=== PATIENT | female | born 1975 | race Caucasian/White ===

== ENCOUNTER 2016-07-30 16:02 | Emergency (ER) | payer BC, OTHER ==
[~2016-07-30] VITALS: Ht 160 cm; Wt 87.1 kg
[~2016-07-30 16:02] MED LIST: CLC/300 PO; CLON1TAB21 PO; TOPI200T6 PO; TOPI50TA24 PO
[2016-07-30 16:04] VITALS: TEMP 37; Ht 160 cm; Wt 87.1 kg
[2016-07-30 18:41] LABS: BASO % 0.4 %; BASO ABS # 0.04 K/uL (0-0.2); COMPLETE YES; EOS % 3.6 %; HEMATOCRIT 43.9 % (37-47); IG% 0.2 %; LYMPH % 24.2 %; LYMPH ABS # 2.23 K/uL (1.2-3.4); MEAN CELL VOLUME 84.4 fL (80-100); MEAN CORPUSCULAR HGB CONC 34.4 g/dl (32-36); MEAN PLATELET VOLUME 10.8 fL (7.4-10.4); NEUT % 66.6 %; PLATELET COUNT 179 K/uL (130-400)
[2016-07-30 18:56] LABS: PARTIAL THROMBOPLASTIN RATIO 1.1
[2016-07-30 19:04] LABS: ALT/SGPT 15 U/L (12-78); BLOOD UREA NITROGEN 17 mg/dl (7-18); BUN/CREATININE RATIO 17.4 (10-20); CALCIUM 8.6 mg/dl (8.5-10.1); CARBON DIOXIDE 21 mmol/L (21-32); CHLORIDE 111 mmol/L (98-107); CREATININE 0.98 mg/dl (0.60-1.20); GLUCOSE 84 mg/dl (70-99); POTASSIUM 3.5 mmol/L (3.5-5.1); SODIUM 144 mmol/L (136-145)
[2016-07-30 19:15] LABS: ALB/GLOB RATIO 0.9 (0.9-2); ALKALINE PHOSPHATASE 88 U/L (45-117); AST/SGOT 15 U/L (15-37)
--- NOTE | 2016-07-30 19:49 | DIAGNOSTIC IMAGING REPORT ---
CAROTID ARTERY ULTRASOUND CLINICAL HISTORY: Left eye blindness. Evaluate amaurosis fugax. History of seizures. COMPARISON STUDY: None. TECHNIQUE: Real-time, grayscale, and color Doppler sonography of the carotid and vertebral arteries was performed. Images were viewed in the transverse and longitudinal planes. FINDINGS: No significant atherosclerotic plaque is identified. Velocity measurements are listed below. COMMON CAROTID PEAK SYSTOLIC VELOCITY (CM/S): RIGHT 104 LEFT 98 ICA PEAK SYSTOLIC VELOCITY (CM/S): RIGHT 68 LEFT 64 The systolic ratios between the internal to common carotid arteries are normal. Antegrade flow is seen in the vertebral arteries. The external carotid arteries are patent. Blood pressure in the right arm measured 100/66. Blood pressure in the left arm measured 97/69. IMPRESSION: Normal carotid ultrasound. No evidence of a hemodynamically significant stenosis. Electronically signed by: Kit Montalvo M.D. 07/30/2016 7:47 PM Dictated Date/Time: 07/30/2016 7:46 PM
[2016-07-30] MEDS ORDERED: GADAVIST IV PRN (20:15)
--- NOTE | 2016-07-30 20:36 | DIAGNOSTIC IMAGING REPORT ---
MRI OF THE BRAIN WITHOUT AND WITH IV CONTRAST SEIZURE PROTOCOL CLINICAL HISTORY: History of seizures. Recent transient left-sided vision loss. COMPARISON STUDY: Head CT July 05, 2012. TECHNIQUE: Utilizing a 1.5 Shayna magnet and dedicated coil, multiplanar, multiecho imaging of the brain was performed pre and postcontrast administration. IV administration of 9 mL of Gadavist contrast was uneventful. Thin cut coronal T2 imaging was performed according to seizure protocol. FINDINGS: There no areas of restricted diffusion. No acute intracranial hemorrhage, midline shift or mass effect is present. Brain volume is normal. Ventricular system is normal. The basilar cisterns are patent. There are no extra-axial collections. Flow-voids for the major intracranial vessels are present. There is 7 mm of cerebellar tonsillar ectopia. There are few small T2 hyperintense foci within the bilateral cerebellar hemispheres. No additional areas of signal abnormality are identified within the brain. No intracranial mass or pathologic enhancement is present. There is mild mucosal thickening of the maxillary and ethmoid sinuses. Orbits are unremarkable. IMPRESSION: 1. No acute intracranial findings. 2. No intracranial masses or pathologic enhancement. 3. 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 4. A few small areas of signal abnormality within the bilateral cerebellar hemispheres which could reflect prominent perivascular spaces or old lacunar infarcts. Electronically signed by: Kit Montalvo M.D. 07/30/2016 8:35 PM Dictated Date/Time: 07/30/2016 8:25 PM
--- NOTE | 2016-07-30 20:36 | DIAGNOSTIC IMAGING REPORT ---
MRA OF THE INTRACRANIAL CIRCULATION WITHOUT CONTRAST CLINICAL HISTORY: Left-sided vision loss. Amaurosis fugax. History of seizures. COMPARISON STUDY: None. TECHNIQUE: Utilizing a 1.5 Shayna magnet and 3-D [id number] technique, unenhanced MRA of the intracranial circulation was obtained. FINDINGS: The bilateral M1, M2, A1 and A2 segments are patent. No abrupt vessel cut off or aneurysm is identified within the intracranial circulation. The posterior circulation appears intact. There are bilateral posterior communicating arteries and an anterior communicating artery. IMPRESSION: Unremarkable MRA of the intracranial circulation. Electronically signed by: Kit Montalvo M.D. 07/30/2016 8:35 PM Dictated Date/Time: 07/30/2016 7:49 PM
[2016-07-30] MEDS ORDERED: ASPIRIN 81 MG CHEW PO STA (20:55)
[2016-07-30 21:04] VITALS: BP 102/79; PULSE 79; O2SAT 98
--- NOTE | 2016-07-31 01:17 | EMERGENCY ROOM VISIT NOTE ---
ED Visit Note First contact with patient: 17:21 Chief Complaint: Vision changes. History of Present Illness: Ms. Hamilton is a 41-year-old white female who ambulates into the ED accompanied by her mother complaining of a transient episode of left eye blindness. Historically patient reports she has a history of epilepsy, severe mitral valve prolapse with valvuloplasty. Patient reports she was referred to the ED from her neurologist's office, Dr. Marilia Chaudhari, for evaluation. Patient reports she was feeling well approximately one week ago and then had an acute onset of left eye blindness that lasted for approximately 30-45 seconds. She denied any precipitating symptoms before this event. She reports since the event she is perceiving a mild tunnel vision predominantly in her left eye and she is feeling fatigued. She has not identified any aggravating or alleviating factors related to these symptoms. She had not taken any medications for these symptoms prior to arrival at the hospital. She denies any associated symptoms including headache, recent head trauma, dizziness, lightheadedness, hearing changes, difficulty speaking, difficult swallowing, difficulty ambulating/ coronary body movements, neck pain, back pain, upper respiratory tract symptoms , cough, wheezing, shortness of breath, chest pain, abdominal pain, nausea, vomiting, decreased appetite, extremity weakness/numbness/tingling. Review of Systems: As noted above in history of present illness. All body systems were reviewed and found to be negative as noted above. Past Medical History: As noted above and bronchitis, congestive heart failure, lumbar Syrinx, anxiety, status post section and tubal ligation. Current Medications: Topamax, clonazepam. Allergies to Medications: Penicillin. Social History: Patient is not employed; she lives with her parents and feels safe in her home environment; she denies tobacco and alcohol use. Physical Examination: Vital Signs: Date Time Temp Pulse Resp B/P Pulse Ox O2 Delivery O2 Flow Rate FiO2 07/30/16 21:04 79 16 102/79 98 Room Air 07/30/16 20:32 73 16 103/78 98 Room Air 07/30/16 18:40 73 18 113/73 100 Room Air 07/30/16 16:04 37.0 93 16 118/88 97 Room Air GENERAL: 41-year-old female in mildly anxious but in no acute distress, nontoxic -appearing, afebrile and hemodynamically stable. NEUROLOGICAL: Awake, alert and oriented to person, place and time. Answering questions appropriately and following commands. Normal gait. Good hand eye coordination. No focal motor or sensory deficits. Cranial nerves II through XII grossly intact. Romberg test negative. Pronator drift test negative. Short-term and long-term recall. Able to count backwards. Normal rapid all movements of the hands and feet. Normal heel bermudez test. SKIN: Warm, dry and pink. No soft tissue eruptions or trauma noted. HEENT: Atraumatic and normocephalic. PERRLA. EOMI without nystagmus. Funduscopic examination is unremarkable with a normal-appearing optic disc and no signs of increased intracranial pressure. Sclera mildly injected bilaterally and conjunctiva pink without drainage. No drainage from naris without congestion. Oral cavity moist and pink. Airway patent. Nonradiating tongue. Pharynx is nonerythematous or edematous. Speech normal. No lymphadenopathy. Trachea midline. No jugular venous distention. No carotid bruits. BACK: No tenderness over the bony cervical, thoracic and lumbar spines. Full range of motion of the cervical spine. No CVA tenderness. THORAX: Lungs sounds are clear to auscultation and equal bilaterally with symmetrical chest wall. No wheezing, rales or rhonchi. No crepitus, tenderness , subcutaneous air or deformities noted. HEART: Regular rate and rhythm. No gallops or rubs are appreciated. Systolic murmur heard over the apex. PMI is not displaced. No lifts, heaves or thrills. ABDOMEN: Flat, soft and nontender. Positive bowel sounds in all quadrants. No guarding, rigidity or organomegaly. EXTREMITIES: Moves all extremities well on command and with purpose. All distal neurovascular statuses are intact and equal bilaterally. No calf tenderness or cords. ED Course: Patient is assessed as noted above. Laboratory Testing: Test 07/30/16 18:25 Range/Units White Blood Count 9.20 4.8-10.8 K/uL Red Blood Count 5.20 4.2-5.4 M/uL Hemoglobin 15.1 12.0-16.0 g/dL Hematocrit 43.9 37-47 % Mean Corpuscular Volume 84.4 80-100 fL Mean Corpuscular Hemoglobin 29.0 25-34 pg Mean Corpuscular Hemoglobin Concent 34.4 32-36 g/dl Platelet Count 179 130-400 K/uL Mean Platelet Volume 10.8 7.4-10.4 fL Neutrophils (%) (Auto) 66.6 % Lymphocytes (%) (Auto) 24.2 % Monocytes (%) (Auto) 5.0 % Eosinophils (%) (Auto) 3.6 % Basophils (%) (Auto) 0.4 % Neutrophils # (Auto) 6.12 1.4-6.5 K/uL Lymphocytes # (Auto) 2.23 1.2-3.4 K/uL Monocytes # (Auto) 0.46 0.11-0.59 K/uL Eosinophils # (Auto) 0.33 0-0.5 K/uL Basophils # (Auto) 0.04 0-0.2 K/uL RDW Standard Deviation 40.9 36.4-46.3 fL RDW Coefficient of Variation 13.4 11.5-14.5 % Immature Granulocyte % (Auto) 0.2 % Immature Granulocyte # (Auto) 0.02 0.00-0.02 K/uL Erythrocyte Sedimentation Rate 5 0-21 mm/hr Prothrombin Time 11.0 9.0-12.0 SECONDS Prothromb Time International Ratio 1.0 0.9-1.1 Activated Partial Thromboplast Time 28.0 21.0-31.0 SECONDS Partial Thromboplastin Ratio 1.1 Sodium Level 144 136-145 mmol/L Potassium Level 3.5 3.5-5.1 mmol/L Chloride Level 111 98-107 mmol/L Carbon Dioxide Level 21 21-32 mmol/L Anion Gap 12.0 3-11 mmol/L Blood Urea Nitrogen 17 7-18 mg/dl Creatinine 0.98 0.60-1.20 mg/dl Est Creatinine Clear Calc Drug Dose 80.6 ml/min Estimated GFR () 84.2 Estimated GFR (Non- 72.7 BUN/Creatinine Ratio 17.4 10-20 Random Glucose 84 70-99 mg/dl Calcium Level 8.6 8.5-10.1 mg/dl Total Bilirubin 0.3 0.2-1 mg/dl Aspartate Amino Transf (AST/SGOT) 15 15-37 U/L Alanine Aminotransferase (ALT/SGPT) 15 12-78 U/L Alkaline Phosphatase 88 45-117 U/L Troponin I < 0.015 0-0.045 ng/ml Total Protein 7.6 6.4-8.2 gm/dl Albumin 3.6 3.4-5.0 gm/dl Globulin 4.0 2.5-4.0 gm/dl Albumin/Globulin Ratio 0.9 0.9-2 Thyroid Stimulating Hormone (TSH) 2.080 0.300-4.500 uIu/ml EKG: Was read by myself and reviewed with Dr. Crook; shows normal sinus rhythm with left atrial enlargement. Ventricular rate [address] changes indicating ischemia, injury or infarction. This was compared to a previous from June 2012 changes include decreased heart rate. Carotid Artery Ultrasound: Was reviewed by myself and read by the radiologist showing normal carotid ultrasound with no evidence of hyperdynamic significant stenosis. MRI Brain Combo: Was reviewed by myself and read by the radiologist showing no acute intracranial findings, no intracranial masses/pathology enhancement, cerebral tonsillar ectopia of 7 mm are borderline for Chiari I malformation and a few small areas of single abnormality within the bilateral cerebellar hemispheres which could reflect prominent perivascular spaces or old lunar infarcts. MRA Brain: Was reviewed by myself and read by the radiologist showing an unremarkable MRA of the intracranial circulation. Patient was given a 1 mg aspirin tablet at the request of her neurologist. Patient was reassessed multiple times during her stay in the emergency department. Patient's case and testing was reviewed with Dr. Chaudhari; she recommended that the patient continue to use 81 mg of aspirin today and to keep her upcoming appointment with cardiology and neurology. Patient was educated about tonight's findings and instructed on her treatment plan; she verbalizes understanding and agreement with this plan. Clinical Impression: Evaluation for Amaurosis Fugax. Disposition: Patient discharged home in stable condition accompanied by her mother; prior to departure she was reassessed and subjectively reported she was feeling the same. Plan: Patient was encouraged to use 1 mg of aspirin per day. Patient was encouraged to keep her upcoming appointment with cardiology and neurology. Patient was encouraged return the ED for any return of blindness or any new/ concerning symptoms.
== END 2016-07-30 21:09 | disposition home or self-care (01) ==
LOC: C.EDB 16:04 → C.EDA 21:09
DX: H54.2 Low vision, both eyes (principal); I34.1 Nonrheumatic mitral (valve) prolapse

== ENCOUNTER 2021-03-27 10:50 | Inpatient (IN) ==
--- NOTE | 2021-03-27 11:18 | Emergency Department Note ---
History of Present Illness General Chief complaint: Stroke/CVA Symptoms Stated complaint: POSSIBLE STROKE Time Seen by Provider: 03/27/21 11:13 Source: patient, RN notes reviewed and old records reviewed Mode of arrival: ambulatory Limitations: no limitations History of Present Illness This patient is 45-year-old female who is history of a seizures and a stroke comes in after having strokelike symptoms since yesterday at noon. She says she has left-sided numbness around her lip and also her fingertips. She is fallen 4 times because she has been weak on her left leg. She does not feel her speech has been slurred but her daughter does. She denies any trauma no recent seizures. She is on Klonopin for her seizures. She denies any fever or chills. No history of diabetes no abdominal pain. She had the Covid vaccine x2 in the past. No change in vision no headache neck pain or stiffness. Home Medications Medication Instructions Recorded Confirmed Type topiramate 50 mg tablet 50 mg PO DAILY 08/26/19 03/27/21 History topiramate 50 mg tablet 100 mg PO HS 08/26/19 03/27/21 History aspirin 81 mg tablet 81 mg PO DAILY 03/27/21 03/27/21 History clonazepam 0.5 mg tablet 0.5 mg PO TID 03/27/21 03/27/21 History topiramate 200 mg tablet 200 mg PO BID 03/27/21 03/27/21 History Allergies Allergy/AdvReac Type Severity Reaction Status Date / Time Penicillins Allergy Unknown Unknown Verified 03/27/21 12:09 lamotrigine [From Lamictal] Allergy Unknown Unverified 03/27/21 12:09 Past Med/Surg History Medical History (Updated 03/27/21 @ 16:31 by Shawn Mishra MD) CHF (congestive heart failure) 1 episode Epilepsy History of CVA (cerebrovascular accident) Mitral valve stenosis MTHFR mutation Surgical History (Updated 03/27/21 @ 16:18 by GENARO Michaels) History of tubal ligation S/P balloon mitral valvuloplasty in 1999 and 2017 [facility] Social History (Updated 03/27/21 @ 16:15 by GENARO Michaels) Smoking Status: Current some day smoker Tobacco Type: Cigarettes Hx Alcohol Use: No Feels Safe at Home: Yes Review of Systems A total of 10 systems reviewed and were otherwise negative Physical Exam Vital Signs Vital Signs - 24 hr 03/27/21 10:58 03/27/21 11:25 03/27/21 11:35 Temperature 36.6 C Temperature Source Temporal Artery Scan Pulse Rate 116 H 85 Pulse Rate [Right Finger] 99 H Pulse Rate from SpO2 Sensor 87 Pulse Rhythm Pulse Rhythm [Right Finger] Regular Pulse Strength [Right Finger] Normal Respiratory Rate 18 20 Respiratory Effort / Characteristics Non-Labored Non-Labored Spontaneous Respiratory Depth Normal Normal Respiratory Pattern Regular Blood Pressure 109/83 Blood Pressure [Left Arm] 117/88 Blood Pressure Mean 91 Blood Pressure Mean [Left Arm] 97 Blood Pressure Position [Left Arm] Sitting Pulse Oximetry 100 100 100 Oxygen Delivery Method Room Air Room Air Room Air Sepsis Recent Fever Within 48 Hours No Sepsis New/Unexplained Change in Mental Status No Sepsis Action Taken by Nursing No Action Required 03/27/21 11:36 03/27/21 11:40 03/27/21 11:50 Temperature Temperature Source Pulse Rate 99 H 90 74 Pulse Rate [Right Finger] Pulse Rate from SpO2 Sensor 90 74 Pulse Rhythm Regular Pulse Rhythm [Right Finger] Pulse Strength [Right Finger] Respiratory Rate 20 Respiratory Effort / Characteristics Respiratory Depth Respiratory Pattern Blood Pressure Blood Pressure [Left Arm] Blood Pressure Mean Blood Pressure Mean [Left Arm] Blood Pressure Position [Left Arm] Pulse Oximetry 100 100 100 Oxygen Delivery Method Room Air Room Air Room Air Sepsis Recent Fever Within 48 Hours Sepsis New/Unexplained Change in Mental Status Sepsis Action Taken by Nursing 03/27/21 12:00 03/27/21 12:10 03/27/21 12:20 Temperature Temperature Source Pulse Rate 74 69 77 Pulse Rate [Right Finger] 79 Pulse Rate from SpO2 Sensor 73 68 77 Pulse Rhythm Pulse Rhythm [Right Finger] Regular Pulse Strength [Right Finger] Normal Respiratory Rate 18 18 Respiratory Effort / Characteristics Non-Labored Spontaneous Respiratory Depth Normal Respiratory Pattern Regular Blood Pressure Blood Pressure [Left Arm] 117/82 Blood Pressure Mean Blood Pressure Mean [Left Arm] 93 Blood Pressure Position [Left Arm] Sitting Pulse Oximetry 100 100 100 Oxygen Delivery Method Room Air Room Air Room Air Sepsis Recent Fever Within 48 Hours Sepsis New/Unexplained Change in Mental Status Sepsis Action Taken by Nursing 03/27/21 12:30 03/27/21 12:40 03/27/21 12:50 Temperature Temperature Source Pulse Rate 64 64 71 Pulse Rate [Right Finger] Pulse Rate from SpO2 Sensor 66 64 72 Pulse Rhythm Pulse Rhythm [Right Finger] Pulse Strength [Right Finger] Respiratory Rate Respiratory Effort / Characteristics Respiratory Depth Respiratory Pattern Blood Pressure 111/78 Blood Pressure [Left Arm] Blood Pressure Mean 89 Blood Pressure Mean [Left Arm] Blood Pressure Position [Left Arm] Pulse Oximetry 100 100 100 Oxygen Delivery Method Room Air Room Air Room Air Sepsis Recent Fever Within 48 Hours Sepsis New/Unexplained Change in Mental Status Sepsis Action Taken by Nursing 03/27/21 13:00 03/27/21 13:10 03/27/21 13:20 Temperature Temperature Source Pulse Rate 78 83 71 Pulse Rate [Right Finger] Pulse Rate from SpO2 Sensor 78 81 73 Pulse Rhythm Pulse Rhythm [Right Finger] Pulse Strength [Right Finger] Respiratory Rate Respiratory Effort / Characteristics Respiratory Depth Respiratory Pattern Blood Pressure Blood Pressure [Left Arm] Blood Pressure Mean Blood Pressure Mean [Left Arm] Blood Pressure Position [Left Arm] Pulse Oximetry 100 100 100 Oxygen Delivery Method Room Air Sepsis Recent Fever Within 48 Hours Sepsis New/Unexplained Change in Mental Status Sepsis Action Taken by Nursing 03/27/21 13:30 03/27/21 13:40 03/27/21 13:50 Temperature Temperature Source Pulse Rate 67 67 63 Pulse Rate [Right Finger] Pulse Rate from SpO2 Sensor 67 67 64 Pulse Rhythm Pulse Rhythm [Right Finger] Pulse Strength [Right Finger] Respiratory Rate Respiratory Effort / Characteristics Respiratory Depth Respiratory Pattern Blood Pressure 117/84 Blood Pressure [Left Arm] Blood Pressure Mean 95 Blood Pressure Mean [Left Arm] Blood Pressure Position [Left Arm] Pulse Oximetry 100 100 100 Oxygen Delivery Method Sepsis Recent Fever Within 48 Hours Sepsis New/Unexplained Change in Mental Status Sepsis Action Taken by Nursing 03/27/21 14:00 03/27/21 14:13 03/27/21 14:20 Temperature Temperature Source Pulse Rate 65 77 70 Pulse Rate [Right Finger] Pulse Rate from SpO2 Sensor 64 77 69 Pulse Rhythm Pulse Rhythm [Right Finger] Pulse Strength [Right Finger] Respiratory Rate Respiratory Effort / Characteristics Respiratory Depth Respiratory Pattern Blood Pressure 125/80 Blood Pressure [Left Arm] Blood Pressure Mean 95 Blood Pressure Mean [Left Arm] Blood Pressure Position [Left Arm] Pulse Oximetry 100 100 100 Oxygen Delivery Method Sepsis Recent Fever Within 48 Hours Sepsis New/Unexplained Change in Mental Status Sepsis Action Taken by Nursing 03/27/21 14:30 03/27/21 14:40 Temperature Temperature Source Pulse Rate 67 87 Pulse Rate [Right Finger] Pulse Rate from SpO2 Sensor 66 77 Pulse Rhythm Pulse Rhythm [Right Finger] Pulse Strength [Right Finger] Respiratory Rate Respiratory Effort / Characteristics Respiratory Depth Respiratory Pattern Blood Pressure Blood Pressure [Left Arm] Blood Pressure Mean Blood Pressure Mean [Left Arm] Blood Pressure Position [Left Arm] Pulse Oximetry 100 98 Oxygen Delivery Method Room Air Sepsis Recent Fever Within 48 Hours Sepsis New/Unexplained Change in Mental Status Sepsis Action Taken by Nursing General: Well developed well nourished young female who appears in no acute distress, breathing comfortably on room air. Normal speech, no facial asymmetry or droop HEENT: Normal cephalic atraumatic. Pupils are equal round and reactive to light. Extraocular movements are intact. Oropharynx is pink with moist mucous membranes. No swelling of the mouth lips or tongue. Neck: Supple with a midline trachea. No meningeal signs or stiffness, no JVD or bruits. No Stridor. Chest: Clear to auscultation bilaterally. No wheezes or rhonchi. No increased work of breathing. Heart: Regular rate and rhythm without murmurs or gallops. Abdomen: Soft nontender, nondistended without rebound guarding or rigidity. Extremities: No cyanosis clubbing or edema. No calf tenderness or assymetry Spine/Back. Non tender to palpation. No CVA tenderness Skin: Good turgor without rashes. Neurologic exam: Cranial nerves two through 12 are intact. Motor and sensation are intact and symmetrical throughout. She says she feels subjectively decreased sensation in the left cheek and also her fingertips. Finger-nose intact. No tremor. Course Administered Medications Discontinued Medications Aspirin (Aspirin 81 Mg Chew) 324 mg PO NOW STA Stop: 03/27/21 12:59 Last Admin: 03/27/21 13:14 Dose: 324 mg Documented by: [id number] Sodium Chloride (Nss 1000ml) 500 mls @ 999 mls/hr IV .Q31M ONE Stop: 03/27/21 13:28 Last Infusion: 03/27/21 13:42 Dose: 0 mls/hr Documented by: [id number] Admin: 03/27/21 13:11 Dose: 999 mls/hr Documented by: [id number] Ioversol (Optiray 320 125ml) 110 ml IV ONCE ONE Stop: 03/27/21 11:35 Last Admin: 03/27/21 11:34 Dose: 110 ml Documented by: [id number] Critical Care Time Critical Care Time: Yes Total Critical Care Time: 30 Due to the patient's acute stroke-like symptoms, need to see the patient immediately, frequent reassessment, consultation with stroke neurology hospitalist and consideration for acute interventions including TPA/intervention neurology procedures, I have personally spent greater than 30 minutes of critical care time in the direct management of this patient. This includes bedside care, interpretation of diagnostic studies, and testing, discussion with consultants, patient, and family members, and other required patient management activities. This 30 minutes is in excess of all separately billable procedures. Medical Decision Making Differential Diagnosis Stroke, seizure, intracranial hemorrhage, TIA, electrolyte or metabolic ab normality, infection, Covid Medical Records Attestation: I reviewed the patient's medical records. Home Medications Current Medication List: was personally reviewed by me Laboratory Data Attestation: I reviewed the patient's lab results. Result diagrams: 03/27/21 11:04 03/27/21 11:04 Lab Results 03/27/21 03/27/21 03/27/21 Range/Units 11:04 11:04 11:04 WBC 6.88 (4.8-10.8) K/uL RBC 5.28 (4.2-5.4) M/uL Hgb 12.1 (12.0-16.0) g/dL POC Hgb (12.0-16.0) g/dl Hct 38.7 (37-47) % POC Hct (37-47) % MCV 73.3 L (80-100) fL MCH 22.9 L (25-34) pg MCHC 31.3 L (32-36) g/dL RDW Std Deviation 49.3 H (36.4-46.3) fL RDW Coeff of Yung 18.5 H (11.5-14.5) % Plt Count 190 (130-400) K/uL PT 10.1 (9.0-12.0) Seconds INR 1.0 (0.9-1.1) APTT 29.2 (21.0-31.0) Seconds PTT Ratio 1.1 POC Sodium (135-144) mmol/L Sodium 142 (136-145) mmol/L POC Potassium (3.3-5.0) mmol/L Potassium 3.7 (3.5-5.1) mmol/L POC Chloride (101-112) mmol/L Chloride 115 H (98-107) mmol/L Carbon Dioxide 20 L (21-32) mmol/L POC Total CO2 (24-31) mmol/L Anion Gap 7.0 (3-11) POC Anion Gap (16-25) mmol/L POC BUN (7-18) mg/dl BUN 14 (7-18) mg/dl Creatinine 0.90 (0.6-1.2) mg/dl POC Creatinine (0.6-1.3) mg/dl Est Cr Clr Drug Dosing 81.0 ml/min Est GFR ( Amer) 90.8 ml/min Est GFR (Non-Af Amer) 78.3 ml/min BUN/Creatinine Ratio 15.8 (10-20) Glucose 91 (70-99) mg/dl POC Glucose (other) (70-99) mg/dl Calcium 8.6 (8.5-10.1) mg/dl POC Ioniz Calcium Robi (1.12-1.32) mmol/l Magnesium 2.1 (1.8-2.4) mg/dl Total Bilirubin 0.2 (0.2-1) mg/dl AST 14 L (15-37) U/L ALT 17 (12-78) U/L Alkaline Phosphatase 101 (45-117) U/L Troponin I < 0.015 (0-0.045) ng/ml Total Protein 7.3 (6.4-8.2) gm/dl Albumin 3.4 (3.4-5.0) gm/dl Globulin 3.9 (2.5-4.0) gm/dl Albumin/Globulin Ratio 0.9 (0.9-2) HCG, Qual (Negative) COVID-19 Eval Order SARS-CoV-2 (PCR) (Negative) 03/27/21 03/27/21 03/27/21 Range/Units 11:18 11:25 14:54 WBC (4.8-10.8) K/uL RBC (4.2-5.4) M/uL Hgb (12.0-16.0) g/dL POC Hgb 13.6 (12.0-16.0) g/dl Hct (37-47) % POC Hct 40 (37-47) % MCV (80-100) fL MCH (25-34) pg MCHC (32-36) g/dL RDW Std Deviation (36.4-46.3) fL RDW Coeff of Yung (11.5-14.5) % Plt Count (130-400) K/uL PT (9.0-12.0) Seconds INR (0.9-1.1) APTT (21.0-31.0) Seconds PTT Ratio POC Sodium 143 (135-144) mmol/L Sodium (136-145) mmol/L POC Potassium 3.8 (3.3-5.0) mmol/L Potassium (3.5-5.1) mmol/L POC Chloride 112 (101-112) mmol/L Chloride (98-107) mmol/L Carbon Dioxide (21-32) mmol/L POC Total CO2 18 L (24-31) mmol/L Anion Gap (3-11) POC Anion Gap 17.0 (16-25) mmol/L POC BUN 15 (7-18) mg/dl BUN (7-18) mg/dl Creatinine (0.6-1.2) mg/dl POC Creatinine 0.9 (0.6-1.3) mg/dl Est Cr Clr Drug Dosing ml/min Est GFR ( Amer) ml/min Est GFR (Non-Af Amer) ml/min BUN/Creatinine Ratio (10-20) Glucose (70-99) mg/dl POC Glucose (other) 92 (70-99) mg/dl Calcium (8.5-10.1) mg/dl POC Ioniz Calcium Robi 1.21 (1.12-1.32) mmol/l Magnesium (1.8-2.4) mg/dl Total Bilirubin (0.2-1) mg/dl AST (15-37) U/L ALT (12-78) U/L Alkaline Phosphatase (45-117) U/L Troponin I (0-0.045) ng/ml Total Protein (6.4-8.2) gm/dl Albumin (3.4-5.0) gm/dl Globulin (2.5-4.0) gm/dl Albumin/Globulin Ratio (0.9-2) HCG, Qual Negative (Negative) COVID-19 Eval Order Covid19 at [facility] SARS-CoV-2 (PCR) (Negative) 03/27/21 Range/Units 14:54 WBC (4.8-10.8) K/uL RBC (4.2-5.4) M/uL Hgb (12.0-16.0) g/dL POC Hgb (12.0-16.0) g/dl Hct (37-47) % POC Hct (37-47) % MCV (80-100) fL MCH (25-34) pg MCHC (32-36) g/dL RDW Std Deviation (36.4-46.3) fL RDW Coeff of Yung (11.5-14.5) % Plt Count (130-400) K/uL PT (9.0-12.0) Seconds INR (0.9-1.1) APTT (21.0-31.0) Seconds PTT Ratio POC Sodium (135-144) mmol/L Sodium (136-145) mmol/L POC Potassium (3.3-5.0) mmol/L Potassium (3.5-5.1) mmol/L POC Chloride (101-112) mmol/L Chloride (98-107) mmol/L Carbon Dioxide (21-32) mmol/L POC Total CO2 (24-31) mmol/L Anion Gap (3-11) POC Anion Gap (16-25) mmol/L POC BUN (7-18) mg/dl BUN (7-18) mg/dl Creatinine (0.6-1.2) mg/dl POC Creatinine (0.6-1.3) mg/dl Est Cr Clr Drug Dosing ml/min Est GFR ( Amer) ml/min Est GFR (Non-Af Amer) ml/min BUN/Creatinine Ratio (10-20) Glucose (70-99) mg/dl POC Glucose (other) (70-99) mg/dl Calcium (8.5-10.1) mg/dl POC Ioniz Calcium Robi (1.12-1.32) mmol/l Magnesium (1.8-2.4) mg/dl Total Bilirubin (0.2-1) mg/dl AST (15-37) U/L ALT (12-78) U/L Alkaline Phosphatase (45-117) U/L Troponin I (0-0.045) ng/ml Total Protein (6.4-8.2) gm/dl Albumin (3.4-5.0) gm/dl Globulin (2.5-4.0) gm/dl Albumin/Globulin Ratio (0.9-2) HCG, Qual (Negative) COVID-19 Eval Order SARS-CoV-2 (PCR) NEGATIVE (Negative) Imaging Data Attestation: I personally reviewed and interpreted this imaging study as follows: My Impression: Chest x-rayno acute infiltrate, failure, pneumothorax seen Radiologist's Impression: Head CT 03/27/21 11:02 CT SCAN OF THE BRAIN WITHOUT IV CONTRAST CLINICAL HISTORY: Strokelike symptoms. COMPARISON STUDY: CT of the brain dated 07/05/2012. TECHNIQUE: Unenhanced axial CT scan of the brain is performed from the vertex to the skull base. A dose lowering technique was utilized adhering to the principles of ALARA. FINDINGS: Brain parenchyma: The brain parenchyma is normal in appearance. There is no hemorrhage, mass effect, or evidence of acute territorial ischemia by CT criteria. Pritchett-white matter differentiation is preserved. Punctate calcifications are noted in the left occipital lobe. No extra-axial fluid co llection is seen. Ventricles, sulci, cisterns: Normal in configuration. Intracranial vasculature: The visualized intracranial vasculature at the skull base is normal in appearance. Calvarium: Unremarkable. Sinuses and mastoids: There is trace mucosal thickening within the ethmoid sinuses. The remaining visualized paranasal sinuses are clear. The mastoid air cells are well pneumatized. Orbits: The bony orbits are grossly intact. IMPRESSION: There is no hemorrhage, mass effect, or evidence of acute territorial ischemia by CT criteria. ACT 112: Negative or not required by law. Electronically signed by: Son Steiner M.D. 03/27/2021 11:29 AM Chest X-Ray 03/27/21 11:13 SINGLE VIEW CHEST CLINICAL HISTORY: Strokelike symptoms FINDINGS: An AP, portable, upright chest radiograph is compared to study dated 08/26/2019. The cardiomediastinal silhouette is unremarkable. The lungs and pleural spaces are clear. No pneumothorax is seen. The bony thorax is grossly intact. IMPRESSION: No active disease in the chest. ACT 112: Negative or not required by law. Electronically signed by: Son Steiner M.D. 03/27/2021 11:54 AM Head CTA 03/27/21 11:13 CT ANGIOGRAM OF THE BRAIN CLINICAL HISTORY: Strokelike symptoms. COMPARISON STUDY: Unenhanced CT of the brain dated 03/27/2021. MR angiogram of the brain dated 07/30/2016. TECHNIQUE: Following the IV administration of 110 cc of Optiray 320, CT angiogram of the brain was performed from the skull base to the vertex. Images are reviewed in the axial, sagittal, and coronal planes. 3-D MIPS images are created and assessed. IV contrast was administered without complication. A dose lowering technique was utilized adhering to the principles of ALARA. FINDINGS: Brain parenchyma: The brain parenchyma is normal in appearance. There is no evidence of hemorrhage, mass effect, or acute territorial ischemia noting angiographic phase technique. There is no evidence of enhancing mass lesion on the angiogram phase images. No extra-axial fluid collection is seen. Pritchett-white matter differentiation is preserved. Ventricles, sulci, and cisterns: Normal in configuration. CT angiogram of the brain: There are large bilateral posterior indicating arteries. The internal carotid arteries are widely patent, as are the anterior and middle cerebral arteries. The vertebral arteries and basilar arteries are patent. The vertebral arteries are codominant. The P1 segments are diminutive, and there is complete focal occlusion of the P1 segment on the right. This is best seen on axial image #80. This represents a change from October 2016 examination. The posterior cervical arteries are otherwise widely patent. 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 No additional aneurysm is identified. Dural sinuses: Clear as visualized. Orbits: The bony orbits are intact. The orbital contents are normal as visualized. Sinuses and mastoids: Mild mucosal thickening is noted in the maxillary antra in the ethmoid sinuses. The remaining visualized paranasal sinuses are clear. The mastoid air cells are well pneumatized. Calvarium: Unremarkable. IMPRESSION: 1. There is no evidence of hemorrhage, mass effect, of acute territorial ischemia noting angiographic phase technique. 2. There are large bilateral posterior communicating arteries. 3. The P1 segments of the posterior cerebral arteries are diminutive. There is focal occlusion of the P1 segment on the right which represents a change from the 2017 MR angiogram. The posterior cerebral arteries are otherwise widely patent and this finding is of indeterminant significance. 4. The intracranial vessels are otherwise widely patent. 5. 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 This is likely unchanged from 2017 and of doubtful significance. ACT 112: Negative or not required by law. Electronically signed by: Son Steiner M.D. 03/27/2021 11:54 AM Neck CTA 03/27/21 11:13 NECK CTA HISTORY: Neurological deficit. Stroke Like Symptoms TECHNIQUE: Multiaxial CT images of the neck were performed following the intravenous administration of contrast to evaluate the major cervical vessels. Maximum intensity projection images were also obtained. All measurements were calculated based on NASCET criteria. A dose lowering technique was utilized adhering to the principles of ALARA. COMPARISON STUDY: None. FINDINGS: The aortic arch and proximal great vessels are widely patent. There is no significant stenosis, occlusion, or dissection identified within the bilateral common carotid, internal carotid, or vertebral arteries. IMPRESSION: No significant stenosis, occlusion, or dissection identified within the carotid or vertebral arteries. ACT 112: Negative or not required by law. Electronically signed by: Catrachito Burgess M.D. 03/27/2021 11:48 AM ECG Data Attestation: I personally reviewed and interpreted this ECG as follows: Indication: + weakness Rate (beats per minute): 87 ECG Intervals/blocks: + Normal QRS, + Normal QT and + Normal NC ECG [place]: + Normal ECG ST segments: + Normal ST segments ECG Findings: no PACs or no PVCs Comparison ECG Date: from (07/23/20) Change: the following changes noted (Rate has decreased) MDM Narrative This patient comes in as described above. She was placed on a traffic monitor specialist in room D7. They called me from triage given her strokelike symptoms and her history I did call a stroke alert. She is outside the TPA window but I wanted to make sure she have a large vessel disease. EKG does not suggest acute coronary syndrome or arrhythmia. She has no significant electrolyte or metabolic abnormalities to explain her symptoms. She has nothing suggest sepsis or infection. Covid testing was done as well. CAT scan of her head was unremarkable. CTA of the neck was unremarkable. CT of the head she has a new P1 occlusion on the right compared to MRI in 2017 chronicity unknown. I did d iscuss this with the [place] neurologist who felt that we should keep her in the hospital for further stroke work-up. At this point she is well outside the TPA window her, her symptoms are mild and he said there is nothing interventionally they would do with this at [facility]. In light of this I did admit her here. She was given aspirin 324 mg chewable IV fluids and I did consult the [facility] spitalist to see her for these measures. Continuous cardiac monitoring: Orders placed in EMR for continuous cardiac monitoring: Upon my interpretation patient was noted to be in normal sinus rhythm with a rate of 85 Impression & Plan Acute CVA (cerebrovascular accident), Numbness, Falls frequently, Lab test negative for COVID-19 virus, Not currently Discharge Plan Visit Data Chief Complaint: Stroke/CVA Symptoms Stated Complaint: POSSIBLE STROKE ED Provider: Shawn Mishra Discharge Problem: Acute CVA (cerebrovascular accident), Numbness, Falls frequently, Lab test negative for COVID-19 virus, Not currently
[2021-03-27 11:23] LABS: Hematocrit (blood only) 38.7 % (37-47); Hemoglobin 12.1 g/dL (12.0-16.0); Mean Corpuscular Hemoglobin 22.9 pg (25-34); Mean Corpuscular Hgb Conc 31.3 g/dL (32-36); Mean Corpuscular Volume 73.3 fL (80-100); Platelet Count 190 K/uL (130-400); RDW Coefficient of Variation 18.5 % (11.5-14.5); RDW Standard Deviation 49.3 fL (36.4-46.3); Red Blood Count 5.28 M/uL (4.2-5.4); White Blood Count 6.88 K/uL (4.8-10.8)
[2021-03-27 11:30] LABS: iSTAT Creatinine 0.9 mg/dl (0.6-1.3); iSTAT Hemoglobin 13.6 g/dl (12.0-16.0); iSTAT Ionized Calcium 1.21 mmol/l (1.12-1.32); iSTAT Potassium 3.8 mmol/L (3.3-5.0)
--- NOTE | 2021-03-27 11:31 | CT Scan Report ---
CT SCAN OF THE BRAIN WITHOUT IV CONTRAST CLINICAL HISTORY: Strokelike symptoms. COMPARISON STUDY: CT of the brain dated 07/05/2012. TECHNIQUE: Unenhanced axial CT scan of the brain is performed from the vertex to the skull base. A d ose lowering technique was utilized adhering to the principles of ALARA. FINDINGS: Brain parenchyma: The brain parenchyma is normal in appearance. There is no hemorrhage, mass effect, or evidence of acute territorial ischemia by CT criteria. Pritchett-white matter differentiation is preser nicci. Punctate calcifications are noted in the left occipital lobe. No extra-axial fluid collection is seen. Ventricles, sulci, cisterns: Normal in configuration. Intracranial vasculature: The visualized intracranial vasculature at the skull base is normal in appe arance. Calvarium: Unremarkable. Sinuses and mastoids: There is trace mucosal thickening within the ethmoid sinuses. The remaining vis ualized paranasal sinuses are clear. The mastoid air cells are well pneumatized. Orbits: The bony orbits are grossly intact. IMPRESSION: There is no hemorrhage, mass effect, or evidence of acute territorial ischemia by CT celena restrepo. ACT 112: Negative or not required by law. Electronically signed by: Son Steiner M.D. 03/27/2021 11:29 AM
[2021-03-27] MEDS ORDERED: OPTIRAY 320 125ml IV ONE (11:34)
[2021-03-27 11:39] LABS: Partial Thromboplastin Ratio 1.1; Partial Thromboplastin Time 29.2 Seconds (21.0-31.0); Prothrombin Time 10.1 Seconds (9.0-12.0)
[2021-03-27 11:43] LABS: Alanine Aminotransferase 17 U/L (12-78); Albumin Level 3.4 gm/dl (3.4-5.0); Aspartate Aminotransferase 14 U/L (15-37); BUN Creatinine Ratio 15.8 (10-20); Blood Urea Nitrogen 14 mg/dl (7-18); Calcium 8.6 mg/dl (8.5-10.1); Carbon Dioxide 20 mmol/L (21-32); Chloride 115 mmol/L (98-107); Est GFR (African American) 90.8 ml/min; Est GFR (Non-African American) 78.3 ml/min; Glucose 91 mg/dl (70-99); Magnesium 2.1 mg/dl (1.8-2.4); Potassium 3.7 mmol/L (3.5-5.1); Sodium 142 mmol/L (136-145)
[2021-03-27 11:48] LABS: Albumin Globulin Ratio 0.9 (0.9-2); Alkaline Phosphatase 101 U/L (45-117); Bilirubin,Total 0.2 mg/dl (0.2-1); Globulin 3.9 gm/dl (2.5-4.0); Total Protein 7.3 gm/dl (6.4-8.2); Troponin I < 0.015 ng/ml (0-0.045)
--- NOTE | 2021-03-27 11:50 | CT Scan Report ---
NECK CTA HISTORY: Neurological deficit. Stroke Like Symptoms TECHNIQUE: Multiaxial CT images of the neck were performed following the intravenous administration o f contrast to evaluate the major cervical vessels. Maximum intensity projection images were also obta ined. All measurements were calculated based on NASCET criteria. A dose lowering technique was utili zed adhering to the principles of ALARA. COMPARISON STUDY: None. FINDINGS: The aortic arch and proximal great vessels are widely patent. There is no significant sten osis, occlusion, or dissection identified within the bilateral common carotid, internal carotid, or v ertebral arteries. IMPRESSION: No significant stenosis, occlusion, or dissection identified within the carotid or vertebral arteries . ACT 112: Negative or not required by law. Electronically signed by: Catrachito Burgess M.D. 03/27/2021 11:48 AM
--- NOTE | 2021-03-27 11:55 | CT Scan Report ---
CT ANGIOGRAM OF THE BRAIN CLINICAL HISTORY: Strokelike symptoms. COMPARISON STUDY: Unenhanced CT of the brain dated 03/27/2021. MR angiogram of the brain dated 2016. TECHNIQUE: Following the IV administration of 110 cc of Optiray 320, CT angiogram of the brain was pe rformed from the skull base to the vertex. Images are reviewed in the axial, sagittal, and coronal pl anes. 3-D MIPS images are created and assessed. IV contrast was administered without complication. A dose lowering technique was utilized adhering to the principles of ALARA. FINDINGS: Brain parenchyma: The brain parenchyma is normal in appearance. There is no evidence of hemorrhage, m ass effect, or acute territorial ischemia noting angiographic phase technique. There is no evidence o f enhancing mass lesion on the angiogram phase images. No extra-axial fluid collection is seen. Pritchett- white matter differentiation is preserved. Ventricles, sulci, and cisterns: Normal in configuration. CT angiogram of the brain: There are large bilateral posterior indicating arteries. The internal [place] arteries are widely patent, as are the anterior and middle cerebral arteries. The vertebral arter ies and basilar arteries are patent. The vertebral arteries are codominant. The P1 segments are dimi nutive, and there is complete focal occlusion of the P1 segment on the right. This is best seen on ax ial image #80. This represents a change from October 2016 examination. The posterior cervical arteries ar e otherwise widely patent. 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 No additional aneurysm is identified. Dural sinuses: Clear as visualized. Orbits: The bony orbits are intact. The orbital contents are normal as visualized. Sinuses and mastoids: Mild mucosal thickening is noted in the maxillary antra in the ethmoid sinuses. The remaining visualized paranasal sinuses are clear. The mastoid air cells are well pneumatized. Calvarium: Unremarkable. IMPRESSION: 1. There is no evidence of hemorrhage, mass effect, of acute territorial ischemia noting angiographic phase technique. 2. There are large bilateral posterior communicating arteries. 3. The P1 segments of the posterior cerebral arteries are diminutive. There is focal occlusion of the P1 segment on the right which represents a change from the 2017 MR angiogram. The posterior cerebral arteries are otherwise widely patent and this finding is of indeterminant significance. 4. The intracranial vessels are otherwise widely patent. 5. 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 This is likely unchanged from 2017 and of doubtful significance. ACT 112: Negative or not required by law. Electronically signed by: Son Steiner M.D. 03/27/2021 11:54 AM
--- NOTE | 2021-03-27 11:56 | XRay Report ---
SINGLE VIEW CHEST CLINICAL HISTORY: Strokelike symptoms FINDINGS: An AP, portable, upright chest radiograph is compared to study dated 08/26/2019. The cardiom ediastinal silhouette is unremarkable. The lungs and pleural spaces are clear. No pneumothorax is see n. The bony thorax is grossly intact. IMPRESSION: No active disease in the chest. ACT 112: Negative or not required by law. Electronically signed by: Son Steiner M.D. 03/27/2021 11:54 AM
[2021-03-27 11:57] LABS: Pregnancy Test, Serum Negative (Negative)
[2021-03-27] MEDS ORDERED: ASPIRIN 81 MG CHEW PO STA (12:58)
[2021-03-27] MEDS ORDERED: SODIUM CHLORIDE 0.9% 1000ML 500 ML IV ONE (12:58)
--- NOTE | 2021-03-27 15:33 | Electrocardiogram Report ---
Test Reason : Blood Pressure : / mmHG Vent. Rate : 087 BPM Atrial Rate : 087 BPM P-R Int : 150 ms QRS Dur : 072 ms QT Int : 390 ms P-R-T Axes : 084 053 044 degrees QTc Int : 469 ms Poor data quality, interpretation may be adversely affected Normal sinus rhythm Possible Left atrial enlargement Borderline ECG When compared with ECG of 23-JUL-2020 12:33, No significant change was found Confirmed by Nathan Ng ([id number]) on 03/27/2021 3:32:38 PM Referred By: Kvng Amos Confirmed By:Nathan gN
--- NOTE | 2021-03-27 16:22 | History & Physical Report ---
Date of Service March 27, 2021 Assessment & Plan (1) Stroke-like symptoms: (2) History of CVA (cerebrovascular accident): (3) MTHFR mutation: Plan: -Admit to telemetry -Patient presenting by referral of neurology office for evaluation of strokelike symptoms (left facial numbness, left fingertip numbness, ataxia/left leg weakness) -MRI 07/2020 showed chronic right basal ganglia ischemic stroke and chronic microvascular ischemic changes. Was started on aspirin at that time. -In the ED, stroke alert was called however patient was felt to be not a candidate for TPA given that she was outside of the time window -CTA head neck shows focal occlusion of the P1 segment on the right, otherwise unremarkable -Noted history of MTHFR mutation diagnosed in 2008, patient was referred to hematology however was never formally evaluated -Brain MRI, echo -Continue aspirin, start atorvastatin 80 mg, add Plavix if MRI positive for CVA -Neurochecks -Complex migraine vs. seizure also considered -Neurology consult, case discussed with Dr. Lara (4) Epilepsy: Plan: -Continue Topamax and clonazepam (5) S/P balloon mitral valvuloplasty: Plan: -In 1999 and 2016, no acute issues (6) DVT prophylaxis: Plan: -SQ Lovenox History of Present Illness Chief Complaint: Strokelike symptoms Primary Care Provider: Sandor Reyna MD 45-year-old female with PMH mitral valve stenosis s/p mitral valve valvuloplasty in 2006 and 2016 at [facility], history of epilepsy, MTHFR mutation, history of CVA (chronic right basal ganglia ischemic stroke found on MRI, patient asymptomatic), and other problems listed below who presents to the ED for evaluation of strokelike symptoms. Patient reports that yesterday around noon at work, she developed left facial numbness, left fingertip numbness and left leg weakness and gait dysfunction. Symptoms persisted through today and she was evaluated in the outpatient neurology office who sent her to the ED for further evaluation. Patient with a history of epilepsy, reports no missed doses of medications and no recent seizure-like activity. Patient denies headache, blurred or double vision. Denies chest pain or shortness of breath. No other recent illnesses, fevers, chills. Denies abdominal pain, nausea, vomiting, diarrhea. No urinary symptoms. In the ED, stroke alert was called however patient was not felt to be a TPA candidate given that she was outside of the time window. Head and neck CTAs were performed that showed a focal occlusion of the P1 segment on the right. Patient was given full dose aspirin and IVF. Allergies Allergy/AdvReac Type Severity Reaction Status Date / Time Penicillins Allergy Unknown Unknown Verified 03/27/21 12:09 lamotrigine [From Lamictal] Allergy Unknown Unverified 03/27/21 12:09 Home Medications Medication Instructions Recorded Confirmed Type topiramate 50 mg tablet 50 mg PO DAILY 08/26/19 03/27/21 History topiramate 50 mg tablet 100 mg PO HS 08/26/19 03/27/21 History aspirin 81 mg tablet 81 mg PO DAILY 03/27/21 03/27/21 History clonazepam 0.5 mg tablet 0.5 mg PO TID 03/27/21 03/27/21 History topiramate 200 mg tablet 200 mg PO BID 03/27/21 03/27/21 History Past Med/Surg History Medical History (Updated 03/27/21 @ 16:31 by Shawn Mishra MD) CHF (congestive heart failure) 1 episode Epilepsy History of CVA (cerebrovascular accident) Mitral valve stenosis MTHFR mutation Surgical History (Updated 03/27/21 @ 16:18 by GENARO Michaels) History of tubal ligation S/P balloon mitral valvuloplasty in 1999 and 2016 [facility] Social History (Updated 03/27/21 @ 16:15 by GENARO Michaels) Smoking Status: Current some day smoker Tobacco Type: Cigarettes Hx Alcohol Use: No Feels Safe at Home: Yes Review of Systems Review of Systems: ROS per HPI, all other systems reviewed and negative Physical Exam Constitutional: WD/WN, vitals as above Eyes: PERRL, conjunctivae normal, anicteric sclerae ENMT: external ear and nose normal, oropharynx normal Respiratory: normal respiratory effort, lungs clear to auscultation Cardiovascular: Rate/Rhythm: regular rate and regular rhythm Vessels: normal peripheral pulses Extremities: no edema Gastrointestinal (Abdomen): normal bowel sounds, soft, nontender, no hepatosplenomegaly Musculoskeletal: no cyanosis or clubbing, extremities motor strength 5/5 Skin: no rashes, warm and dry Neurologic: PERRL, EOMI, accommodation nl, no face palsy, no dysarthria moves all extremities and awake Motor/Sensory: no pronator drift Gait: + ataxic gait Coordination: normal [id number] test Decreased sensation to left outer lip and left fingertips Psychiatric: A+Ox3, euthymic affect Results & Data Results & Data ([facility]) Vital Signs (Past 12 Hours) Vital Signs Temp Pulse Pulse Resp BP BP Pulse Ox 03/27/21 14:40 87 98 03/27/21 14:30 67 100 03/27/21 14:20 70 100 03/27/21 14:13 77 100 03/27/21 14:00 65 125/80 100 03/27/21 13:50 63 117/84 100 03/27/21 13:40 67 100 03/27/21 13:30 67 100 03/27/21 13:20 71 100 03/27/21 13:10 83 100 03/27/21 13:00 78 100 03/27/21 12:50 71 100 03/27/21 12:40 64 100 03/27/21 12:30 64 111/78 100 03/27/21 12:20 77 18 100 03/27/21 12:10 69 100 03/27/21 12:00 74 79 18 117/82 100 03/27/21 11:50 74 100 03/27/21 11:40 90 100 03/27/21 11:36 99 H 20 100 03/27/21 11:35 85 100 03/27/21 11:25 99 H 20 117/88 100 03/27/21 10:58 36.6 C 116 H 18 109/83 100 Laboratory Results Short CBC 03/27/21 Range/Units 11:04 WBC 6.88 (4.8-10.8) K/uL Hgb 12.1 (12.0-16.0) g/dL Hct 38.7 (37-47) % Plt Count 190 (130-400) K/uL BMP 03/27/21 11:04 Sodium 142 Potassium 3.7 Chloride 115 H Carbon Dioxide 20 L BUN 14 Creatinine 0.90 Glucose 91 Calcium 8.6 Cardiac Enzymes 03/27/21 Range/Units 11:04 Troponin I < 0.015 (0-0.045) ng/ml Liver Function 03/27/21 Range/Units 11:04 Total Bilirubin 0.2 (0.2-1) mg/dl AST 14 L (15-37) U/L ALT 17 (12-78) U/L Alkaline Phosphatase 101 (45-117) U/L Albumin 3.4 (3.4-5.0) gm/dl Diagnostic Findings Head CT 03/27/21 11:02 CT SCAN OF THE BRAIN WITHOUT IV CONTRAST CLINICAL HISTORY: Strokelike symptoms. COMPARISON STUDY: CT of the brain dated 07/05/2012. TECHNIQUE: Unenhanced axial CT scan of the brain is performed from the vertex to the skull base. A dose lowering technique was utilized adhering to the principles of ALARA. FINDINGS: Brain parenchyma: The brain parenchyma is normal in appearance. There is no hemorrhage, mass effect, or evidence of acute territorial ischemia by CT criter ia. Pritchett-white matter differentiation is preserved. Punctate calcifications are noted in the left occipital lobe. No extra-axial fluid collection is seen. Ventricles, sulci, cisterns: Normal in configuration. Intracranial vasculature: The visualized intracranial vasculature at the skull base is normal in appearance. Calvarium: Unremarkable. Sinuses and mastoids: There is trace mucosal thickening within the ethmoid sinuses. The remaining visualized paranasal sinuses are clear. The mastoid air cells are well pneumatized. Orbits: The bony orbits are grossly intact. IMPRESSION: There is no hemorrhage, mass effect, or evidence of acute territorial ischemia by CT criteria. ACT 112: Negative or not required by law. Electronically signed by: Son Steiner M.D. 03/27/2021 11:29 AM Chest X-Ray 03/27/21 11:13 SINGLE VIEW CHEST CLINICAL HISTORY: Strokelike symptoms FINDINGS: An AP, portable, upright chest radiograph is compared to study dated 08/26/2019. The cardiomediastinal silhouette is unremarkable. The lungs and pleural spaces are clear. No pneumothorax is seen. The bony thorax is grossly intact. IMPRESSION: No active disease in the chest. ACT 112: Negative or not required by law. Electronically signed by: Son Steiner M.D. 03/27/2021 11:54 AM Head CTA 03/27/21 11:13 CT ANGIOGRAM OF THE BRAIN CLINICAL HISTORY: Strokelike symptoms. COMPARISON STUDY: Unenhanced CT of the brain dated 03/27/2021. MR angiogram of the brain dated 07/30/2016. TECHNIQUE: Following the IV administration of 110 cc of Optiray 320, CT angiogram of the brain was performed from the skull base to the vertex. Images are reviewed in the axial, sagittal, and coronal planes. 3-D MIPS images are created and assessed. IV contrast was administered without complication. A dose lowering technique was utilized adhering to the principles of ALARA. FINDINGS: Brain parenchyma: The brain parenchyma is normal in appearance. There is no evidence of hemorrhage, mass effect, or acute territorial ischemia noting angiographic phase technique. There is no evidence of enhancing mass lesion on the angiogram phase images. No extra-axial fluid collection is seen. Pritchett-white matter differentiation is preserved. Ventricles, sulci, and cisterns: Normal in configuration. CT angiogram of the brain: There are large bilateral posterior indicating arteries. The internal carotid arteries are widely patent, as are the anterior and middle cerebral arteries. The vertebral arteries and basilar arteries are p atent. The vertebral arteries are codominant. The P1 segments are diminutive, and there is complete focal occlusion of the P1 segment on the right. This is best seen on axial image #80. This represents a change from October 2016 examination. The posterior cervical arteries are otherwise widely patent. 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 No additional aneurysm is identified. Dural sinuses: Clear as visualized. Orbits: The bony orbits are intact. The orbital contents are normal as visualized. Sinuses and mastoids: Mild mucosal thickening is noted in the maxillary antra in the ethmoid sinuses. The remaining visualized paranasal sinuses are clear. The mastoid air cells are well pneumatized. Calvarium: Unremarkable. IMPRESSION: 1. There is no evidence of hemorrhage, mass effect, of acute territorial ischemia noting angiographic phase technique. 2. There are large bilateral posterior communicating arteries. 3. The P1 segments of the posterior cerebral arteries are diminutive. There is focal occlusion of the P1 segment on the right which represents a change from the 2017 MR angiogram. The posterior cerebral arteries are otherwise widely patent and this finding is of indeterminant significance. 4. The intracranial vessels are otherwise widely patent. 5. 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 This is likely unchanged from 2017 and of doubtful significance. ACT 112: Negative or not required by law. Electronically signed by: Son Steiner M.D. 03/27/2021 11:54 AM Neck CTA 03/27/21 11:13 NECK CTA HISTORY: Neurological deficit. Stroke Like Symptoms TECHNIQUE: Multiaxial CT images of the neck were performed following the intravenous administration of contrast to evaluate the major cervical vessels. Maximum intensity projection images were also obtained. All measurements were calculated based on NASCET criteria. A dose lowering technique was utilized adhering to the principles of ALARA. COMPARISON STUDY: None. FINDINGS: The aortic arch and proximal great vessels are widely patent. There is no significant stenosis, occlusion, or dissection identified within the bilateral common carotid, internal carotid, or vertebral arteries. IMPRESSION: No significant stenosis, occlusion, or dissection identified within the carotid or vertebral arteries. ACT 112: Negative or not required by law. Electronically signed by: Catrachito Burgess M.D. 03/27/2021 11:48 AM Code Status & VTE Plan VTE Prophylaxis Plan VTE Prophylaxis will be ordered: Yes Supervising Physician Co-Signing Physician Notes I have seen and examined the patient and have discussed the case with the provider above. I agree with the assessment and plan as stated. 45 yo F p resented via POV from Neurology clinic for stroke like symptoms that began during a psychiatry appointment yesterday around noon. Symptoms of left sided numbness and weakness she reports have not improved but have not worsened. However, she did have some speech involvement which is not present now. She passed a bedside swallow test, denies any headache except just now from not eating all day, denies eye involvement, and reports her left leg dragging. She is able to rise up on her toes, Romberg and heel to bermudez are negative. She can walk slowly but does appear to have an abnormal gait. Otherwise she denies any sensation loss but reports some tingling in her left fingertips (all), and left lower cheek area. She reports persistent LLE weakness. Imaging studies as above. MRI pending. Neuro consulted. Physical exam is otherwise unremarkable. Differential for her symptoms includes but is not limited to stroke, ?seizure (has seizure history), or complicated migraine (hemiplegic migraine). She does have evidence of prior infarcts on previous MRIs and is on aspirin consistently. Also with a h/o genetic mutation putting her at higher risk for stroke. Agree with adding statin for plaque stabilization and continuing aspirin for now. MRI reveals no evidence of acute stroke. Known h/o chiari malformation. MRI revelas subcentimeter focus of increased T2/flair signal in the right cerebral peduncle new from 2017 comparison. Will obtain EEG in am. Cont home topiramate. Cont to monitor on telemetry. PT and OT to assess function in am. Defer further imaging studies to neurology once they are able to see her. Junior, DO
--- NOTE | 2021-03-27 16:57 | Magnetic Resonance Report ---
MR brain wo con HISTORY: 45 years-old Female stroke like symptoms acute strokelike symptoms with history of prior se izure COMPARISON: Head CT of same day, brain MRI 07/30/2016 TECHNIQUE: Multiplanar multisequence MRI of the brain was obtained without the use of IV contrast. FINDINGS: Low-lying cerebellar tonsils extend 6 mm below the foramen magnum. Ultrasonographer localizer images demonstrate no gross extracranial abnormality. No restricted diffusion to suggest acute or subacute infarct. No pathologic blooming artifact. No acute intracranial hemorrhage, midline shift, abnormal extra-axial c ollection, hydrocephalus or intracranial mass. The sinuses and major arterial flow voids are patent. The mastoid air cells are clear. Mild mucosal thickening of the paranasal sinuses. The skull, orbits and soft tissues are unremarkable. Indeterminate subcentimeter focus of increased T2/FLAIR signal wit hin the right cerebral peduncle on image 15 series 5 measures 5 mm. Mild scattered subcentimeter T2/F LAIR hyperintense foci are again noted within the cerebral hemispheres bilaterally, likely of no clin ical significance. Additional subcentimeter foci of increased T2 signal in the cerebellar hemispheres appear unchanged. IMPRESSION: 1. No acute or subacute infarct. 2. Low-lying cerebellar tonsils. 3. Subcentimeter foci of increased T2 signal within the cerebellar hemispheres redemonstrated suggest darlene of chronic lacunar infarcts versus perivascular spaces. 4. Subcentimeter focus of increased T2/FLAIR signal within the right cerebral peduncle is indetermina te and appears new from the 2017 comparison. Correlate with clinical presentation to exclude an acute seizure focus. ACT 112: Negative or not required by law. The above report was generated using voice recognition software. It may contain grammatical, syntax o r spelling errors. Electronically signed by: Robert Clancy M.D. 03/27/2021 4:55 PM
[2021-03-27] MEDS ORDERED: PHARMACIST DISCHARGE MED REC CONSULT PRN (20:31)
[2021-03-27] MEDS ORDERED: ACETAMINOPHEN 325 MG TAB PO PRN (20:31)
[2021-03-27] MEDS: TOPIRAMATE 100 MG TAB PO SCH ×2 (21:22→21:23)
[2021-03-27] MEDS: ATORVASTATIN 40 MG TAB PO SCH (21:23)
[2021-03-27] MEDS: ENOXAPARIN INJ 40 MG/0.4 ML SYR SQ SCH (21:26)
[2021-03-27] MEDS: clonazePAM 0.5 MG TAB PO SCH (21:29)
[2021-03-28 07:51] LABS: Basophils # (auto) 0.04 K/uL (0-0.2); Basophils % (auto) 0.7 %; Eosinophils # (auto) 0.47 K/uL (0-0.5); Hematocrit (blood only) 36.2 % (37-47); Hemoglobin 11.1 g/dL (12.0-16.0); Lymphocytes # (auto) 1.59 K/uL (1.2-3.4); Lymphocytes % (auto) 27.1 %; Mean Corpuscular Hemoglobin 22.7 pg (25-34); Mean Corpuscular Hgb Conc 30.7 g/dL (32-36); Monocytes # (auto) 0.37 K/uL (0.11-0.59); Monocytes % (auto) 6.3 %; Neutrophils % (auto) 57.9 %; Platelet Count 190 K/uL (130-400); RDW Coefficient of Variation 18.7 % (11.5-14.5); RDW Standard Deviation 50.4 fL (36.4-46.3); Red Blood Count 4.89 M/uL (4.2-5.4); White Blood Count 5.87 K/uL (4.8-10.8)
[2021-03-28 08:16] LABS: Estimated Average Glucose 111 mg/dl; Hemoglobin A1C 5.5 % (4.5-5.6)
[2021-03-28 08:22] LABS: Echinocytes 1+; Ovalocytes 1+
[2021-03-28 08:30] LABS: BUN Creatinine Ratio 20.4 (10-20); Calcium 8.2 mg/dl (8.5-10.1); Creatinine Clr Calc Pharmacy 85.1 ml/min; Est GFR (African American) 97.3 ml/min; Est GFR (Non-African American) 83.9 ml/min; Potassium 4.2 mmol/L (3.5-5.1)
[2021-03-28] MEDS: clonazePAM 0.5 MG TAB PO SCH ×3 (09:24→20:34)
[2021-03-28] MEDS: TOPIRAMATE 50 MG TAB PO SCH (09:24)
[2021-03-28] MEDS: TOPIRAMATE 100 MG TAB PO SCH ×3 (09:24→20:36)
[2021-03-28] MEDS: ASPIRIN 81 MG ECTAB PO SCH (09:24)
--- NOTE | 2021-03-28 15:05 | Hospitalist Progress Note ---
Date of Service March 28, 2021 Assessment & Plan (1) Stroke-like symptoms: (2) History of CVA (cerebrovascular accident): (3) MTHFR mutation: Plan: -Patient presenting by referral of neurology office for evaluation of strokelike symptoms (left facial numbness, left fingertip numbness, ataxia/left leg weakness) -MRI 07/2020 showed chronic right basal ganglia ischemic stroke and chronic microvascular ischemic changes. Was started on aspirin at that time. -In the ED, stroke alert was called however patient was felt to be not a candidate for TPA given that she was outside of the time window -CTA head neck shows focal occlusion of the P1 segment on the right, otherwise unremarkable -Noted history of MTHFR mutation diagnosed in 2008, patient was referred to hematology however was never formally evaluated -Brain MRI - 1. No acute or subacute infarct. 2. Low-lying cerebellar tonsils. 3. Subcentimeter foci of increased T2 signal within the cerebellar hemispheres redemonstrated suggestive of chronic lacunar infarcts versus perivascular spaces. 4. Subcentimeter focus of increased T2/FLAIR signal within the right cerebral peduncle is indeterminate and appears new from the 2017 comparison. Correlate with clinical presentation to exclude an acute seizure focus. - Echo - LV is normal in size. There is normal LV wall thickness. LV wall motion is normal. EF 55 to 60%. Left atrium is severely dilated. Bicuspid aortic valve cannot be excluded. No hemodynamically significant valvular aortic stenosis. Mitral valve leaflets are moderately thickened and mildly restricted in leaflet mobility. There is only minimal calcification. 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 There is moderate thickening of the mitral valve chordal apparatus. There is no mitral valve stenosis. There is trace mitral regurg. The interatrial septum is intact with no evidence for an ASD. Injection of contrast documented no inter atrial shunt. Telemetry checked -patient in sinus rhythm, with occasional PVCs -Continue aspirin, start atorvastatin 80 mg, even though current MRI does not show CVA, discussed findings with neurology and will add Plavix Will repeat MRI tomorrow -Neurochecks -Complex migraine vs. seizure also considered -Neurology consult, case discussed with Dr. Lara (4) Epilepsy: Plan: -Continue Topamax and clonazepam (5) S/P balloon mitral valvuloplasty: Plan: -In 1999 and 2016, no acute issues (6) DVT prophylaxis: Plan: -SQ Lovenox Admission and Anticipated Discharge Date Admission Date: March 27, 2021 Subjective Patient seen in follow-up of left lip numbness, left fingers numbness, left lower extremity weakness concern for CVA Currently laying in bed, in no acute distress Denies any fevers, chills, chest pain, shortness of breath Says she feels about the same as yesterday MRI did not show CVA however given her symptoms, there is concern, discussed further with neurology Worked with PT today, and at this time did not do so well, at this time recommend rehab Review of Systems Review of Systems: All systems reviewed & are unremarkable except as noted in Subjective Physical Exam Physical Exam: Constitutional: WD/WN, young F, in NAD Eyes: PERRL, EOMI, conjunctivae normal, anicteric sclerae ENMT: external ear and nose normal, oropharynx normal Respiratory: normal respiratory effort, lungs clear to auscultation Cardiovascular: Rate/Rhythm: regular rate and regular rhythm Vessels: normal peripheral pulses Extremities: no edema Gastrointestinal (Abdomen): normal bowel sounds, soft, nontender Musculoskeletal: Able to move extremities well lying in bed, no sensory loss noted, gait not assessed Skin: no rashes, warm and dry Neurologic: PERRL, EOMI,no face palsy, no dysarthria moves all extremities and awake, able to answer questions appropriately, gait: not assessed Psychiatric: A+Ox3, euthymic affect Results & Data Results & Data ([facility]) Vital Signs (Past 12 Hours) Vital Signs Temp Pulse Pulse Resp BP Pulse Ox 03/28/21 11:38 36.7 C 67 16 94/65 L 97 03/28/21 07:58 37.2 C 74 16 114/79 100 03/28/21 07:51 61 03/28/21 03:29 36.5 C 68 16 94/59 L 98 Laboratory Results 03/28/21 03/28/21 03/28/21 Range/Units 07:01 07:01 07:01 WBC 5.87 (4.8-10.8) K/uL RBC 4.89 (4.2-5.4) M/uL Hgb 11.1 L (12.0-16.0) g/dL Hct 36.2 L (37-47) % MCV 74.0 L (80-100) fL MCH 22.7 L (25-34) pg MCHC 30.7 L (32-36) g/dL RDW Std Deviation 50.4 H (36.4-46.3) fL RDW Coeff of Yung 18.7 H (11.5-14.5) % Plt Count 190 (130-400) K/uL Immature Gran % (Auto) 0.0 % Neut % (Auto) 57.9 % Lymph % (Auto) 27.1 % [place] % (Auto) 6.3 % Eos % (Auto) 8.0 % Baso % (Auto) 0.7 % Neut # (Auto) 3.40 (1.4-6.5) K/uL Lymph # (Auto) 1.59 (1.2-3.4) K/uL [place] # (Auto) 0.37 (0.11-0.59) K/uL Eos # (Auto) 0.47 (0-0.5) K/uL Baso # (Auto) 0.04 (0-0.2) K/uL Immature Gran # (Auto) 0.00 (0.00-0.02) K/uL Ovalocytes 1+ Echinocytes 1+ Sodium 142 (136-145) mmol/L Potassium 4.2 (3.5-5.1) mmol/L Chloride 114 H (98-107) mmol/L Carbon Dioxide 22 (21-32) mmol/L Anion Gap 6.0 (3-11) BUN 17 (7-18) mg/dl Creatinine 0.85 (0.6-1.2) mg/dl Est Cr Clr Drug Dosing 85.1 ml/min Est GFR ( Amer) 97.3 ml/min Est GFR (Non-Af Amer) 83.9 ml/min BUN/Creatinine Ratio 20.4 H (10-20) Glucose 88 (70-99) mg/dl Estimat Average Glucose 111 mg/dl Hemoglobin A1c 5.5 (4.5-5.6) % Calcium 8.2 L (8.5-10.1) mg/dl Triglycerides 60 (0-150) mg/dl Cholesterol 165 (0-200) mg/dl LDL Cholesterol, Calc 103 mg/dl VLDL Cholesterol, Calc 12 mg/dl HDL Cholesterol 50 mg/dl Cholesterol/HDL Ratio 3 SARS-CoV-2 (PCR) (Negative) 03/27/21 Range/Units 14:54 WBC (4.8-10.8) K/uL RBC (4.2-5.4) M/uL Hgb (12.0-16.0) g/dL Hct (37-47) % MCV (80-100) fL MCH (25-34) pg MCHC (32-36) g/dL RDW Std Deviation (36.4-46.3) fL RDW Coeff of Yung (11.5-14.5) % Plt Count (130-400) K/uL Immature Gran % (Auto) % Neut % (Auto) % Lymph % (Auto) % [place] % (Auto) % Eos % (Auto) % Baso % (Auto) % Neut # (Auto) (1.4-6.5) K/uL Lymph # (Auto) (1.2-3.4) K/uL [place] # (Auto) (0.11-0.59) K/uL Eos # (Auto) (0-0.5) K/uL Baso # (Auto) (0-0.2) K/uL Immature Gran # (Auto) (0.00-0.02) K/uL Ovalocytes Echinocytes Sodium (136-145) mmol/L Potassium (3.5-5.1) mmol/L Chloride (98-107) mmol/L Carbon Dioxide (21-32) mmol/L Anion Gap (3-11) BUN (7-18) mg/dl Creatinine (0.6-1.2) mg/dl Est Cr Clr Drug Dosing ml/min Est GFR ( Amer) ml/min Est GFR (Non-Af Amer) ml/min BUN/Creatinine Ratio (10-20) Glucose (70-99) mg/dl Estimat Average Glucose mg/dl Hemoglobin A1c (4.5-5.6) % Calcium (8.5-10.1) mg/dl Triglycerides (0-150) mg/dl Cholesterol (0-200) mg/dl LDL Cholesterol, Calc mg/dl VLDL Cholesterol, Calc mg/dl HDL Cholesterol mg/dl Cholesterol/HDL Ratio SARS-CoV-2 (PCR) NEGATIVE (Negative) Medications Administered Current Inpatient Medications Acetaminophen (Acetaminophen 325 Mg Tab) 650 mg PO Q4H PRN PRN Reason: Pain or Fever Stop: 04/26/21 20:30 Aspirin (Aspirin 81 Mg Ectab) 81 mg PO DAILY KIA Stop: 04/27/21 08:59 Last Admin: 03/28/21 09:24 Dose: 81 mg Documented by: Atorvastatin Calcium (Atorvastatin 40 Mg Tab) 80 mg PO HS KIA Stop: 04/26/21 20:59 Last Admin: 03/27/21 21:23 Dose: 80 mg Documented by: Clonazepam (Clonazepam 0.5 Mg Tab) 0.5 mg PO TID KIA Stop: 04/26/21 20:59 Last Admin: 03/28/21 14:13 Dose: 0.5 mg Documented by: Enoxaparin Sodium (Enoxaparin Inj 40 Mg/0.4 Ml Syr) 40 mg SQ Q24H KIA Stop: 04/26/21 20:59 Last Admin: 03/27/21 21:26 Dose: 40 mg Documented by: Miscellaneous Information (Pharmacist Discharge Med Rec Consult) 1 ea N/A UD PRN PRN Reason: Consult Stop: 04/26/21 20:30 Topiramate (Topiramate 50 Mg Tab) 50 mg PO DAILY KIA Stop: 04/27/21 08:59 Last Admin: 03/28/21 09:24 Dose: 50 mg Documented by: Topiramate (Topiramate 100 Mg Tab) 100 mg PO HS KIA Stop: 04/26/21 20:59 Last Admin: 03/27/21 21:22 Dose: 100 mg Documented by: Topiramate (Topiramate 100 Mg Tab) 200 mg PO BID KIA Stop: 04/26/21 20:59 Last Admin: 03/28/21 09:24 Dose: 200 mg Documented by:
--- NOTE | 2021-03-28 16:10 | Electroencephalogram ---
EEG Procedure Note Date of Service March 28, 2021 Start / End Times Start Time: 1057 End Time: 1117 Referring Physician Jackeline aPcheco DO History History of seizures left hemiparesis Home Medication List Medication Instructions Recorded Confirmed Type topiramate 50 mg tablet 50 mg PO DAILY 08/26/19 03/27/21 History topiramate 50 mg tablet 100 mg PO HS 08/26/19 03/27/21 History aspirin 81 mg tablet 81 mg PO DAILY 03/27/21 03/27/21 History clonazepam 0.5 mg tablet 0.5 mg PO TID 03/27/21 03/27/21 History topiramate 200 mg tablet 200 mg PO BID 03/27/21 03/27/21 History Inpatient Medication List Aspirin (Aspirin 81 Mg Ectab) 81 mg PO DAILY KIA Stop: 04/27/21 08:59 Last Admin: 03/28/21 09:24 Dose: 81 mg Documented by: [id number] Atorvastatin Calcium (Atorvastatin 40 Mg Tab) 80 mg PO HS KIA Stop: 04/26/21 20:59 Last Admin: 03/27/21 21:23 Dose: 80 mg Documented by: [id number] Clonazepam (Clonazepam 0.5 Mg Tab) 0.5 mg PO TID KIA Stop: 04/26/21 20:59 Last Admin: 03/28/21 14:13 Dose: 0.5 mg Documented by: [id number] Admin: 03/28/21 09:24 Dose: 0.5 mg Documented by: [id number] Admin: 03/27/21 21:29 Dose: 0.5 mg Documented by: [id number] Enoxaparin Sodium (Enoxaparin Inj 40 Mg/0.4 Ml Syr) 40 mg SQ Q24H KIA Stop: 04/26/21 20:59 Last Admin: 03/27/21 21:26 Dose: 40 mg Documented by: [id number] Topiramate (Topiramate 50 Mg Tab) 50 mg PO DAILY KIA Stop: 04/27/21 08:59 Last Admin: 03/28/21 09:24 Dose: 50 mg Documented by: [id number] Topiramate (Topiramate 100 Mg Tab) 100 mg PO HS KIA Stop: 04/26/21 20:59 Last Admin: 03/27/21 21:22 Dose: 100 mg Documented by: [id number] Topiramate (Topiramate 100 Mg Tab) 200 mg PO BID KIA Stop: 04/26/21 20:59 Last Admin: 03/28/21 09:24 Dose: 200 mg Documented by: [id number] Admin: 03/27/21 21:23 Dose: 200 mg Documented by: [id number] Discontinued Medications Aspirin (Aspirin 81 Mg Chew) 324 mg PO NOW STA Stop: 03/27/21 12:59 Last Admin: 03/27/21 13:14 Dose: 324 mg Documented by: [id number] Sodium Chloride (Nss 1000ml) 500 mls @ 999 mls/hr IV .Q31M ONE Stop: 03/27/21 13:28 Last Infusion: 03/27/21 13:42 Dose: 0 mls/hr Documented by: [id number] Admin: 03/27/21 13:11 Dose: 999 mls/hr Documented by: [id number] Ioversol (Optiray 320 125ml) 110 ml IV ONCE ONE Stop: 03/27/21 11:35 Last Admin: 03/27/21 11:34 Dose: 110 ml Documented by: [id number] Description This is a 21 electrode EEG with a single channel dedicated to limited EKG. The electrodes were placed in accordance with the International 10-20 system. This EEG during this bedside recording is of excellent technical quality without movement or muscle artifacts of significance and was done during wakefulness with photic stimulation no hyperventilation and drowsiness was not recorded There is evidence for normal background rhythm in the alpha range of 11 Hz and maximum frequency and 30 V a maximum amplitude which is maximum posterior head regions bilaterally symmetrical. Theta activity is seen centrally and is modest voltage upper frequency and again symmetrical as is the bifrontal alpha rhythm. Patient relates provokes a minimal driving response No potentially epileptogenic patterns are seen Interpretation This is a normal EEG during wakefulness Clinical Correlation This is a normal EEG during wakefulness without evidence for focal or generalized encephalopathy without evidence for potentially epileptogenic activity Brendan Lara MD
--- NOTE | 2021-03-28 16:25 | Communication Note ---
Date of Service: March 28, 2021 Arelis is a 45 years old is followed by Dr. Davis for cerebrovascular disease, has had a mitral valvuloplasty, history of prior lacunar infarct, seizure disorder is well controlled and followed by the epilepsy group at [place] and on prior evaluations was noted to have diminutive posterior cerebral arteries on CT angiography She presented with the onset on Friday while talking with her therapist of the left facial numbness weakness slight dysarthric speech numbness and tingling in her fingertips, numbness and weakness of the left leg but did not call neurology until the next morning and was referred promptly to the [facility] emergency room for assessment by Dr. Amos after evaluating her in clinic noting a left hemiparesis She was treated as a stroke alert in the sense that aggressive work-up was performed but was clearly outside the window for TPA, but CT angiography of the brain now shows occlusion of the right posterior cerebral artery P1 segment which was a change from the prior study but MRI showed no clear evidence for new infarction although there was a peculiar area of T2 flair in the right cerebral peduncle that was interpreted as possibly being post seizure and this led to performance of an EEG which subsequently has been normal She has not improved significantly still has left hemiparesis has been seen by physical therapy and is able to ambulate in the hallway is felt to be pretty clumsy and subjectively still has numbness of the left face the fingertips left leg and reduced capacity manipulate objects in the left hand Other medical problems are as outlined below but the major ones are in addition to the mitral valve issue status post valvuloplasty, seizures, prior CVA, intracranial stenoses, and MTHFR mutation Medications at home include aspirin clonazepam Topamax 250 in the morning and 300 at night Has allergies to penicillins and Lamictal Family history and social history are as recorded She is a non-smoker minimal consumer of ethanol and is employed Review of systems recently reveals no fever sweats chills she is COVID-19 negative, she denies any new issues referable to HE[facility], does have monthly migraine headaches without aura and is never had anything involving her visual systems no sensory system related to migraines in the past is no cardiovascular issues other than those related to her mitral valve and has had no pulmonary gastrointestinal genitourinary musculoskeletal or dermatologic complaints. Neurologically she has a history of prior CVA epilepsy and now the new issues for left hemiparesis and hemisensory deficits Examination reveals a blood pressure of 90/60 pulse 64 respirations 14 temperature 36 8 O2 saturation 99% on room air She is awake alert oriented in 3 spheres Cranial nerves reveal a slight left facial asymmetry mildly dysarthric speech and some subjective loss of appreciation of light Touch in the left side of the face with normal protrusion of the tongue and normal neck flexor strength Gait station coordination reveals a mild left hemiparesis with circumduction of the left leg flexion of the left arm with rotation comparison walk independently without an assistive device. There is a drift of the left upper extremity with pronation and clumsiness of rapid repetitive motor motions and some deficits on finger-nose [id number] testing of the left arm but not the right There is reduced facility rapid productions in the left leg Reflexes are brisk in the left arm left leg toe signs equivocally upgoing on the left Strength testing is normal allowing for some upper motor neuron type of weakness on the distal portion of the left leg and left hand Sensation is reduced subjectively to light touch but no sensory neglect is detected on bilateral simultaneous cutaneous stimulation Imaging studies are described above Echocardiogram is pending She is started on dual antiplatelet therapy at my suggestion She is being monitored for atrial fibrillation I am going to suggest another MRI be done tomorrow morning to see if we can document the presence or absence of what I believe is a clinical small stroke involving the right hemisphere possibly deep in the right thalamic zone that may be supplied by posterior perforating vessels originating from the posterior cerebral artery I will check back on her status tomorrow I have communicated with her attending physician Dr. Juliana Lara MD The above note was generated utilizing voice recognition software and may have spelling errors punctuation errors pronoun usage years and syntax errors
[2021-03-28] MEDS: CLOPIDOGREL BISULFATE 75 MG TAB PO SCH (17:07)
[2021-03-28] MEDS: ENOXAPARIN INJ 40 MG/0.4 ML SYR SQ SCH (20:35)
[2021-03-28] MEDS: ATORVASTATIN 40 MG TAB PO SCH (20:35)
[2021-03-29 07:26] LABS: Basophils # (auto) 0.03 K/uL (0-0.2); Basophils % (auto) 0.5 %; Eosinophils # (auto) 0.37 K/uL (0-0.5); Eosinophils % (auto) 6.4 %; Hemoglobin 11.6 g/dL (12.0-16.0); Immature Granulocytes # (auto) 0.01 K/uL (0.00-0.02); Immature Granulocytes % (auto) 0.2 %; Lymphocytes # (auto) 1.43 K/uL (1.2-3.4); Lymphocytes % (auto) 24.9 %; Mean Corpuscular Hemoglobin 22.5 pg (25-34); Mean Corpuscular Hgb Conc 30.5 g/dL (32-36); Mean Corpuscular Volume 73.6 fL (80-100); Monocytes # (auto) 0.41 K/uL (0.11-0.59); Monocytes % (auto) 7.1 %; Neutrophils # (auto) 3.49 K/uL (1.4-6.5); Neutrophils % (auto) 60.9 %; Platelet Count 181 K/uL (130-400); RDW Coefficient of Variation 18.4 % (11.5-14.5); RDW Standard Deviation 49.4 fL (36.4-46.3); Red Blood Count 5.16 M/uL (4.2-5.4); White Blood Count 5.74 K/uL (4.8-10.8)
[2021-03-29 07:58] LABS: BUN Creatinine Ratio 18.7 (10-20); Creatinine Clr Calc Pharmacy 82.3 ml/min; Est GFR (African American) 93.3 ml/min; Est GFR (Non-African American) 80.5 ml/min; Magnesium 2.1 mg/dl (1.8-2.4); Phosphorus 3.7 mg/dl (2.5-4.9); Potassium 3.7 mmol/L (3.5-5.1)
[2021-03-29 08:02] LABS: Hypochromasia Present; Microcytosis Present; Poikilocytosis Present
[2021-03-29] MEDS: ASPIRIN 81 MG ECTAB PO SCH (08:15)
[2021-03-29] MEDS: CLOPIDOGREL BISULFATE 75 MG TAB PO SCH (08:16)
[2021-03-29] MEDS: TOPIRAMATE 50 MG TAB PO SCH (08:16)
[2021-03-29] MEDS: TOPIRAMATE 100 MG TAB PO SCH ×3 (08:17→20:40)
[2021-03-29] MEDS: clonazePAM 0.5 MG TAB PO SCH ×3 (08:22→20:40)
--- NOTE | 2021-03-29 08:43 | Hospitalist Progress Note ---
Date of Service March 29, 2021 Assessment & Plan (1) Stroke-like symptoms: (2) History of CVA (cerebrovascular accident): (3) MTHFR mutation: Plan: -Patient presenting by referral of neurology office for evaluation of strokelike symptoms (left facial numbness, left fingertip numbness, ataxia/left leg weakness) -MRI 07/2020 showed chronic right basal ganglia ischemic stroke and chronic microvascular ischemic changes. Was started on aspirin at that time. -In the ED, stroke alert was called however patient was felt to be not a candidate for TPA given that she was outside of the time window -CTA head neck shows focal occlusion of the P1 segment on the right, otherwise unremarkable -Noted history of MTHFR mutation diagnosed in 2008, patient was referred to hematology however was never formally evaluated -LDL 103, goal <70 -Brain MRI - 1. No acute or subacute infarct. 2. Low-lying cerebellar tonsils. 3. Subcentimeter foci of increased T2 signal within the cerebellar hemispheres redemonstrated suggestive of chronic lacunar infarcts versus perivascular spaces. 4. Subcentimeter focus of increased T2/FLAIR signal within the right cerebral peduncle is indeterminate and appears new from the 2017 comparison. Correlate with clinical presentation to exclude an acute seizure focus. - Repeat MRI Brain 03/29 AM- 1. There is an approximately 2 cm focus of restricted diffusion within the right aspect of the midbrain consistent with an acute to subacute infarct. The restricted diffusion is new as compared to yesterday's examination. 2. No additional foci of acute ischemia are identified. There is no hemorrhage or mass effect. 3. Chronic lacunar infarcts in the cerebellar hemispheres are unchanged. - Echo - LV is normal in size. There is normal LV wall thickness. LV wall motion is normal. EF 55 to 60%. Left atrium is severely dilated. Bicuspid aortic valve cannot be excluded. No hemodynamically significant valvular aortic stenosis. Mitral valve leaflets are moderately thickened and mildly restricted in leaflet mobility. There is only minimal calcification. 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 There is moderate thickening of the mitral valve chordal apparatus. There is no mitral valve stenosis. There is trace mitral regurg. The interatrial septum is intact with no evidence for an ASD. Injection of contrast documented no inter atrial shunt. Telemetry checked -patient in sinus rhythm, with occasional PVCs -Continue aspirin, ,added Plavix , also started atorvastatin 80 mg -Neurochecks -Neurology consulted, case discussed with Dr. Lara Pt will need routine post stroke neuro outpt follow up in 1 month and also recommend Zio patch Otherwise -follow-up with [facility] neurology for her seizure disorder, and [facility] for cardiology Dispo: Worked with PT today, recommend rehab as patient has difficulty amb ulating Patient does not want to go to inpatient rehab at this time. Wanted me to update her - I discussed and updated patient's at . Also discussed in detail concern about her ambulation and risk of falling. He will try to talk to her about inpatient rehab. (4) Epilepsy: Plan: -Continue Topamax and clonazepam (5) S/P balloon mitral valvuloplasty: Plan: -In 1999 and 2016, no acute issues (6) DVT prophylaxis: Plan: -SQ Lovenox Admission and Anticipated Discharge Date Admission Date: March 27, 2021 Subjective Patient seen in follow-up of CVA - left lip numbness, left fingers numbness, left lower extremity weakness Currently laying in bed, in no acute distress Denies any fevers, chills, chest pain, shortness of breath Says she feels about the same as yesterday Initial MRI did not show CVA however repeat MRI today shows acute to subacute infarct in right midbrain Worked with PT today, recommend rehab as patient has difficulty ambulating Patient does not want to go to inpatient rehab at this time. Wanted me to upda te her - I discussed and updated patient's at . Also discussed in detail concern about her ambulation and risk of falling. He will try to talk to her about inpatient rehab. Review of Systems Review of Systems: All systems reviewed & are unremarkable except as noted in Subjective Physical Exam Physical Exam: Constitutional: WD/WN, young F, in NAD Eyes: PERRL, EOMI, conjunctivae normal, anicteric sclerae ENMT: external ear and nose normal, oropharynx normal Respiratory: normal respiratory effort, lungs clear to auscultation Cardiovascular: Rate/Rhythm: regular rate and regular rhythm Vessels: normal peripheral pulses Extremities: no edema Gastrointestinal (Abdomen): normal bowel sounds, soft, nontender Musculoskeletal: Able to move extremities while lying in bed, no sensory loss noted, gait not assessed Skin: no rashes, warm and dry Neurologic: PERRL, EOMI,no face palsy, no dysarthria moves all extremities and awake, able to answer questions appropriately, gait: not assessed Psychiatric: A+Ox3, euthymic affect Results & Data Results & Data ([facility]) Vital Signs (Past 12 Hours) Vital Signs Temp Pulse Pulse Resp BP Pulse Ox 03/29/21 02:03 36.7 C 81 18 94/60 L 96 03/28/21 23:45 36.6 C 67 14 93/62 L 97 03/28/21 23:00 65 Laboratory Results 03/29/21 03/29/21 Range/Units 07:11 07:11 WBC 5.74 (4.8-10.8) K/uL RBC 5.16 (4.2-5.4) M/uL Hgb 11.6 L (12.0-16.0) g/dL Hct 38.0 (37-47) % MCV 73.6 L (80-100) fL MCH 22.5 L (25-34) pg MCHC 30.5 L (32-36) g/dL RDW Std Deviation 49.4 H (36.4-46.3) fL RDW Coeff of Yung 18.4 H (11.5-14.5) % Plt Count 181 (130-400) K/uL Immature Gran % (Auto) 0.2 % Neut % (Auto) 60.9 % Lymph % (Auto) 24.9 % [place] % (Auto) 7.1 % Eos % (Auto) 6.4 % Baso % (Auto) 0.5 % Neut # (Auto) 3.49 (1.4-6.5) K/uL Lymph # (Auto) 1.43 (1.2-3.4) K/uL [place] # (Auto) 0.41 (0.11-0.59) K/uL Eos # (Auto) 0.37 (0-0.5) K/uL Baso # (Auto) 0.03 (0-0.2) K/uL Immature Gran # (Auto) 0.01 (0.00-0.02) K/uL Hypochromasia Present Poikilocytosis Present Microcytosis Present Sodium 142 (136-145) mmol/L Potassium 3.7 (3.5-5.1) mmol/L Chloride 115 H (98-107) mmol/L Carbon Dioxide 21 (21-32) mmol/L Anion Gap 6.0 (3-11) BUN 16 (7-18) mg/dl Creatinine 0.88 (0.6-1.2) mg/dl Est Cr Clr Drug Dosing 82.3 ml/min Est GFR ( Amer) 93.3 ml/min Est GFR (Non-Af Amer) 80.5 ml/min BUN/Creatinine Ratio 18.7 (10-20) Glucose 90 (70-99) mg/dl Calcium 8.0 L (8.5-10.1) mg/dl Phosphorus 3.7 (2.5-4.9) mg/dl Magnesium 2.1 (1.8-2.4) mg/dl Medications Administered Current Inpatient Medications Acetaminophen (Acetaminophen 325 Mg Tab) 650 mg PO Q4H PRN PRN Reason: Pain or Fever Stop: 04/26/21 20:30 Last Admin: 03/28/21 20:34 Dose: 650 mg Documented by: Aspirin (Aspirin 81 Mg Ectab) 81 mg PO DAILY KIA Stop: 04/27/21 08:59 Last Admin: 03/29/21 08:15 Dose: 81 mg Documented by: Atorvastatin Calcium (Atorvastatin 40 Mg Tab) 80 mg PO HS KIA Stop: 04/26/21 20:59 Last Admin: 03/28/21 20:35 Dose: 80 mg Documented by: Clonazepam (Clonazepam 0.5 Mg Tab) 0.5 mg PO TID KIA Stop: 04/26/21 20:59 Last Admin: 03/29/21 08:22 Dose: 0.5 mg Documented by: Clopidogrel Bisulfate (Clopidogrel Bisulfate 75 Mg Tab) 75 mg PO QAM KIA Stop: 04/27/21 16:14 Last Admin: 03/29/21 08:16 Dose: 75 mg Documented by: Enoxaparin Sodium (Enoxaparin Inj 40 Mg/0.4 Ml Syr) 40 mg SQ Q24H KIA Stop: 04/26/21 20:59 Last Admin: 03/28/21 20:35 Dose: 40 mg Documented by: Miscellaneous Information (Pharmacist Discharge Med Rec Consult) 1 ea N/A UD PRN PRN Reason: Consult Stop: 04/26/21 20:30 Topiramate (Topiramate 50 Mg Tab) 50 mg PO DAILY KIA Stop: 04/27/21 08:59 Last Admin: 03/29/21 08:16 Dose: 50 mg Documented by: Topiramate (Topiramate 100 Mg Tab) 100 mg PO HS KIA Stop: 04/26/21 20:59 Last Admin: 03/28/21 20:36 Dose: 100 mg Documented by: Topiramate (Topiramate 100 Mg Tab) 200 mg PO BID KIA Stop: 04/26/21 20:59 Last Admin: 03/29/21 08:17 Dose: 200 mg Documented by:
--- NOTE | 2021-03-29 10:16 | Magnetic Resonance Report ---
MRI OF THE BRAIN WITHOUT IV CONTRAST CLINICAL HISTORY: Follow-up MRI. Stroke like symptoms. Left facial and hand tingling. COMPARISON STUDY: CT and MRI of the brain dated 03/27/2021. TECHNIQUE: MRI of the brain was performed utilizing various T1 and T2-weighted sequences in the axial , sagittal, and coronal planes. IV contrast was not administered for this examination. FINDINGS: Brain parenchyma: There is an approximately 2 cm focus of restricted diffusion identified at the [facility] t midbrain consistent with an acute to subacute infarct. There is no hemorrhage or mass effect. No ad ditional foci of restricted diffusion are identified. Small chronic lacunar infarcts are again seen w ithin the cerebellar hemispheres. There is minimal microangiopathic change. No extra-axial fluid beni ection is seen. The cerebellar tonsils are normal in configuration. Ventricles, sulci, and cisterns: Normal in configuration. Pituitary and sella: Unremarkable. Intracranial vasculature: Normal flow voids are maintained at the skull base. Orbits: The bony orbits are grossly intact. Orbital contents are normal in appearance. Sinuses and mastoids: There is trace mucosal thickening within the maxillary antra and ethmoid sinuse s. The remaining paranasal sinuses and the mastoid air cells are clear. Calvarium: Unremarkable. Cervical cord: Partially visualized cervical spinal cord is normal in morphology and signal intensity . IMPRESSION: 1. There is an approximately 2 cm focus of restricted diffusion within the right aspect of the midbra in consistent with an acute to subacute infarct. The restricted diffusion is new as compared to iker garcia's examination. 2. No additional foci of acute ischemia are identified. There is no hemorrhage or mass effect. 3. Chronic lacunar infarcts in the cerebellar hemispheres are unchanged. ACT 112: Negative or not required by law. Electronically signed by: Son Steiner M.D. 03/29/2021 10:15 AM
--- NOTE | 2021-03-29 15:02 | Communication Note ---
Date of Service: March 29, 2021 Arelis had her MRI repeated today and this does indeed reveal evidence for a right midbrain infarction which nicely explains her left hemiparesis and hem isensory deficits and fortunately has not extended dorsally to involve her extraocular movement pathways but is producing significant ataxia in addition to her hemiparesis and has little change from yesterday when I last examined her Her echocardiogram shows some thickening of the mitral valve which would be expected following her valvuloplasty and is felt that this is possibly post rheumatic fever related but she is well-known to the [facility] cardiology service and they ultimately have the correct diagnosis of the valvular pathology There is no particular atrial enlargement ventricular function is normal but in my opinion she is at risk for paroxysmal atrial fibrillation 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 which I think is responsible for the current vascular event in the midbrain Whether this was an embolic or thrombotic really is difficult to decide but at this point treatment should be with dual antiplatelet agents and she ideally should have a Zio patch done as an outpatient and more ideally should probably go to a rehabilitation facility That having been said she has refused to consider rehabilitation, apparently is related to someone who is in the administration of [facility] near her hometown in the [place] area and hopefully can get in as an outpatient to that facility for ongoing treatment. She is willing to take the dual antiplatelet agents. She follows her for seizures in [place] but I reminded her that neurologist is not going to be comfortable taking care of vascular events She is known to Dr. Chaudhari from past visits regarding her seizures and a prior vascular event. I am going to try to arrange for her to be followed up in our office as a routine post stroke visit in about 4 weeks. She has promised me that she will get in touch with the [facility] and arrange for a visit out there and I suspect they will want a Zio patch or some other outpatient monitoring perhaps a chronic implantable device as dual antiplatelet treatment is really not going to offer any significant benefit for paroxysmal atrial fibrillation If she keeps the scheduled office visit then we will place a Zio patch unless she has been in touch with [facility] and has other arrangements Plans are therefore to discharge her to home today on dual antiplatelet therapy with follow-up with [facility], at [facility] for seizures and in the [facility] office in a month for routine post stroke follow-up and possible placement of a Zio patch Brendan Lara MD The above note was generated utilizing voice recognition technology and may have punctuation errors in spelling errors pronoun usage errors and syntax errors
[2021-03-29] MEDS: ATORVASTATIN 40 MG TAB PO SCH (20:40)
[2021-03-29] MEDS: ENOXAPARIN INJ 40 MG/0.4 ML SYR SQ SCH (20:40)
[2021-03-30 06:05] LABS: Basophils # (auto) 0.02 K/uL (0-0.2); Basophils % (auto) 0.3 %; Eosinophils # (auto) 0.44 K/uL (0-0.5); Eosinophils % (auto) 6.9 %; Hematocrit (blood only) 37.1 % (37-47); Hemoglobin 11.6 g/dL (12.0-16.0); Immature Granulocytes # (auto) 0.01 K/uL (0.00-0.02); Immature Granulocytes % (auto) 0.2 %; Lymphocytes # (auto) 1.76 K/uL (1.2-3.4); Lymphocytes % (auto) 27.5 %; Mean Corpuscular Hemoglobin 22.8 pg (25-34); Mean Corpuscular Hgb Conc 31.3 g/dL (32-36); Monocytes # (auto) 0.37 K/uL (0.11-0.59); Monocytes % (auto) 5.8 %; Neutrophils % (auto) 59.3 %; Platelet Count 198 K/uL (130-400); RDW Coefficient of Variation 18.4 % (11.5-14.5); RDW Standard Deviation 49.1 fL (36.4-46.3); Red Blood Count 5.08 M/uL (4.2-5.4)
[2021-03-30 06:37] LABS: Calcium 8.1 mg/dl (8.5-10.1); Creatinine Clr Calc Pharmacy 80.1 ml/min; Est GFR (African American) 89.6 ml/min; Est GFR (Non-African American) 77.3 ml/min; Potassium 3.7 mmol/L (3.5-5.1)
[2021-03-30] MEDS: TOPIRAMATE 100 MG TAB PO SCH (08:37)
[2021-03-30] MEDS: TOPIRAMATE 50 MG TAB PO SCH (08:37)
[2021-03-30] MEDS: CLOPIDOGREL BISULFATE 75 MG TAB PO SCH (08:38)
[2021-03-30] MEDS: ASPIRIN 81 MG ECTAB PO SCH (08:38)
[2021-03-30] MEDS: clonazePAM 0.5 MG TAB PO SCH ×2 (08:40→14:37)
[2021-03-30] MEDS ORDERED: STROKE PATIENT DISCHARGE STA (13:36)
--- NOTE | 2021-03-30 13:59 | Hospitalist Progress Note ---
Date of Service March 30, 2021 Assessment & Plan (1) Stroke-like symptoms: (2) History of CVA (cerebrovascular accident): (3) MTHFR mutation: Plan: -Patient presenting by referral of neurology office for evaluation of strokelike symptoms (left facial numbness, left fingertip numbness, ataxia/left leg weakness) -MRI 07/2020 showed chronic right basal ganglia ischemic stroke and chronic microvascular ischemic changes. Was started on aspirin at that time. -In the ED, stroke alert was called however patient was felt to be not a candidate for TPA given that she was outside of the time window -CTA head neck shows focal occlusion of the P1 segment on the right, otherwise unremarkable -Noted history of MTHFR mutation diagnosed in 2008, patient was referred to hematology however was never formally evaluated -LDL 103, goal <70 -Brain MRI - 1. No acute or subacute infarct. 2. Low-lying cerebellar tonsils. 3. Subcentimeter foci of increased T2 signal within the cerebellar hemispheres redemonstrated suggestive of chronic lacunar infarcts versus perivascular spaces. 4. Subcentimeter focus of increased T2/FLAIR signal within the right cerebral peduncle is indeterminate and appears new from the 2017 comparison. Correlate with clinical presentation to exclude an acute seizure focus. - Repeat MRI Brain 10 AM- 1. There is an approximately 2 cm focus of restricted diffusion within the right aspect of the midbrain consistent with an acute to subacute infarct. The restricted diffusion is new as compared to yesterday's examination. 2. No additional foci of acute ischemia are identified. There is no hemorrhage or mass effect. 3. Chronic lacunar infarcts in the cerebellar hemispheres are unchanged. - Echo - LV is normal in size. There is normal LV wall thickness. LV wall motion is normal. EF 55 to 60%. Left atrium is severely dilated. Bicuspid aortic valve cannot be excluded. No hemodynamically significant valvular aortic stenosis. Mitral valve leaflets are moderately thickened and mildly restricted in leaflet mobility. There is only minimal calcification. 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 There is moderate thickening of the mitral valve chordal apparatus. There is no mitral valve stenosis. There is trace mitral regurg. The interatrial septum is intact with no evidence for an ASD. Injection of contrast documented no inter atrial shunt. Telemetry checked -patient in sinus rhythm, with occasional PVCs -Continue aspirin, ,added Plavix , also started atorvastatin 80 mg -Neurochecks -Neurology consulted, case discussed with Dr. Lara Pt will need routine post stroke neuro outpt follow up in 1 month and also recommend Zio patch Otherwise -follow-up with [facility] neurology for her seizure disorder, and [facility] for cardiology Dispo: Worked with PT - recommend rehab as patient has difficulty ambulating Patient does not want to go to inpatient rehab at this time. Discussed with patient's , upon patient's request. Her family, her mother and will provide help at home, as patient much prefers to go to outpatient rehab facility then inpt rehab. (4) Epilepsy: Plan: -Continue Topamax and clonazepam (5) S/P balloon mitral valvuloplasty: Plan: -In 1999 and 2016, no acute issues (6) DVT prophylaxis: Plan: -SQ Lovenox Admission and Anticipated Discharge Date Admission Date: March 27, 2021 Subjective Patient seen in follow-up of CVA - left lip numbness, left fingers numbness, left lower extremity weakness Currently laying in bed, in no acute distress Denies any fevers, chills, chest pain, shortness of breath Says she feels about the same as previously She is ambulating better with a walker, prescription for walker provided Initial MRI did not show CVA however repeat MRI today shows acute to subacute infarct in right midbrain Worked with PT today, recommend rehab as patient has difficulty ambulating Patient is not interested in inpt rehab even after detailed conversation about her safety. Also discussed with her family, and her mom, who will be providing help at home. Provided prescription for outpatient PT. Review of Systems Review of Systems: All systems reviewed & are unremarkable except as noted in Subjective Physical Exam Physical Exam: Constitutional: WD/WN, young F, in NAD Eyes: PERRL, EOMI, conjunctivae normal, anicteric sclerae ENMT: external ear and nose normal, oropharynx normal Respiratory: normal respiratory effort, lungs clear to auscultation Cardiovascular: Rate/Rhythm: regular rate and regular rhythm Vessels: normal peripheral pulses Extremities: no edema Gastrointestinal (Abdomen): normal bowel sounds, soft, nontender Musculoskeletal: Able to move extremities while lying in bed, no sensory loss noted, gait not assessed Skin: no rashes, warm and dry Neurologic: PERRL, EOMI,no face palsy, no dysarthria moves all extremities and awake, able to answer questions appropriately, gait: not assessed Psychiatric: A+Ox3, euthymic affect Results & Data Results & Data ([facility]) Vital Signs (Past 12 Hours) Vital Signs Temp Pulse Pulse Resp BP Pulse Ox 03/30/21 11:55 36.8 C 64 16 109/74 100 03/30/21 10:07 58 L 03/30/21 07:48 36.6 C 92 H 17 111/74 97 03/30/21 03:48 36.5 C 75 18 86/54 L 98 Laboratory Results 03/30/21 03/30/21 Range/Units 05:39 05:39 WBC 6.40 (4.8-10.8) K/uL RBC 5.08 (4.2-5.4) M/uL Hgb 11.6 L (12.0-16.0) g/dL Hct 37.1 (37-47) % MCV 73.0 L (80-100) fL MCH 22.8 L (25-34) pg MCHC 31.3 L (32-36) g/dL RDW Std Deviation 49.1 H (36.4-46.3) fL RDW Coeff of Yung 18.4 H (11.5-14.5) % Plt Count 198 (130-400) K/uL Immature Gran % (Auto) 0.2 % Neut % (Auto) 59.3 % Lymph % (Auto) 27.5 % Payne % (Auto) 5.8 % Eos % (Auto) 6.9 % Baso % (Auto) 0.3 % Neut # (Auto) 3.80 (1.4-6.5) K/uL Lymph # (Auto) 1.76 (1.2-3.4) K/uL Payne # (Auto) 0.37 (0.11-0.59) K/uL Eos # (Auto) 0.44 (0-0.5) K/uL Baso # (Auto) 0.02 (0-0.2) K/uL Immature Gran # (Auto) 0.01 (0.00-0.02) K/uL Sodium 140 (136-145) mmol/L Potassium 3.7 (3.5-5.1) mmol/L Chloride 116 H (98-107) mmol/L Carbon Dioxide 20 L (21-32) mmol/L Anion Gap 4.0 (3-11) BUN 13 (7-18) mg/dl Creatinine 0.91 (0.6-1.2) mg/dl Est Cr Clr Drug Dosing 80.1 ml/min Est GFR ( Amer) 89.6 ml/min Est GFR (Non-Af Amer) 77.3 ml/min BUN/Creatinine Ratio 14.0 (10-20) Glucose 94 (70-99) mg/dl Calcium 8.1 L (8.5-10.1) mg/dl Medications Administered Current Inpatient Medications Acetaminophen (Acetaminophen 325 Mg Tab) 650 mg PO Q4H PRN PRN Reason: Pain or Fever Stop: 04/26/21 20:30 Last Admin: 03/28/21 20:34 Dose: 650 mg Documented by: Aspirin (Aspirin 81 Mg Ectab) 81 mg PO DAILY KIA Stop: 04/27/21 08:59 Last Admin: 03/30/21 08:38 Dose: 81 mg Documented by: Atorvastatin Calcium (Atorvastatin 40 Mg Tab) 80 mg PO HS KIA Stop: 04/26/21 20:59 Last Admin: 03/29/21 20:40 Dose: 80 mg Documented by: Clonazepam (Clonazepam 0.5 Mg Tab) 0.5 mg PO TID KIA Stop: 04/26/21 20:59 Last Admin: 03/30/21 08:40 Dose: 0.5 mg Documented by: Clopidogrel Bisulfate (Clopidogrel Bisulfate 75 Mg Tab) 75 mg PO QAM KIA Stop: 04/27/21 16:14 Last Admin: 03/30/21 08:38 Dose: 75 mg Documented by: Enoxaparin Sodium (Enoxaparin Inj 40 Mg/0.4 Ml Syr) 40 mg SQ Q24H KIA Stop: 04/26/21 20:59 Last Admin: 03/29/21 20:40 Dose: 40 mg Documented by: Miscellaneous Information (Pharmacist Discharge Med Rec Consult) 1 ea N/A UD PRN PRN Reason: Consult Stop: 04/26/21 20:30 Miscellaneous Information (Stroke Patient Discharge) 1 ea N/A NOW STA Stop: 03/30/21 13:37 Topiramate (Topiramate 50 Mg Tab) 50 mg PO DAILY KIA Stop: 04/27/21 08:59 Last Admin: 03/30/21 08:37 Dose: 50 mg Documented by: Topiramate (Topiramate 100 Mg Tab) 100 mg PO HS KIA Stop: 04/26/21 20:59 Last Admin: 03/29/21 20:40 Dose: 100 mg Documented by: Topiramate (Topiramate 100 Mg Tab) 200 mg PO BID KIA Stop: 04/26/21 20:59 Last Admin: 03/30/21 08:37 Dose: 200 mg Documented by:
--- NOTE | 2021-03-30 14:01 | Discharge Summary ---
Date of Service March 30, 2021 Admission HPI Per Admitting Provider 45-year-old female with PMH mitral valve stenosis s/p mitral valve valvuloplasty in 2006 and 2017 at [facility], history of epilepsy, MTHFR mutation, history of CVA (chronic right basal ganglia ischemic stroke found on MRI, patient asymptomatic), and other problems listed below who presents to the ED for evaluation of strokelike symptoms. Patient reports that yesterday around noon at work, she developed left facial numbness, left fingertip numbness and left leg weakness and gait dysfunction. Symptoms persisted through today and she was evaluated in the outpatient neurology office who sent her to the ED for further evaluation. Patient with a history of epilepsy, reports no missed doses of medications and no recent seizure-like activity. Patient denies headache, blurred or double vision. Denies chest pain or shortness of breath. No other recent illnesses, fevers, chills. Denies abdominal pain, nausea, vomiting, diarrhea. No urinary symptoms. In the ED, stroke alert was called however patient was not felt to be a TPA candidate given that she was outside of the time window. Head and neck CTAs were performed that showed a focal occlusion of the P1 segment on the right. Patient was given full dose aspirin and IVF. Admission Exam Per Admitting Provider Constitutional: WD/WN, vitals as above Eyes: PERRL, conjunctivae normal, anicteric sclerae ENMT: external ear and nose normal, oropharynx normal Respiratory: normal respiratory effort, lungs clear to auscultation Cardiovascular: Rate/Rhythm: regular rate and regular rhythm Vessels: normal peripheral pulses Extremities: no edema Gastrointestinal (Abdomen): normal bowel sounds, soft, nontender, no hepatosplenomegaly Musculoskeletal: no cyanosis or clubbing, extremities motor strength 5/5 Skin: no rashes, warm and dry Neurologic: PERRL, EOMI, accommodation nl, no face palsy, no dysarthria moves all extremities and awake Motor/Sensory: no pronator drift Gait: + ataxic gait Coordination: normal [id number] test Decreased sensation to left outer lip and left fingertips Psychiatric: A+Ox3, euthymic affect Principal Diagnosis Acute CVA Discharge Exam Constitutional: WD/WN, young F, in NAD Eyes: PERRL, EOMI, conjunctivae normal, anicteric sclerae ENMT: external ear and nose normal, oropharynx normal Respiratory: normal respiratory effort, lungs clear to auscultation Cardiovascular: Rate/Rhythm: regular rate and regular rhythm Vessels: normal peripheral pulses Extremities: no edema Gastrointestinal (Abdomen): normal bowel sounds, soft, nontender Musculoskeletal: Able to move extremities while lying in bed, no sensory loss noted, gait not assessed Skin: no rashes, warm and dry Neurologic: PERRL, EOMI,no face palsy, no dysarthria moves all extremities and awake, able to answer questions appropriately, gait: not assessed Psychiatric: A+Ox3, euthymic affect Discharge Data Allergies Allergy/AdvReac Type Severity Reaction Status Date / Time Penicillins Allergy Unknown Unknown Verified 03/27/21 12:09 lamotrigine [From Lamictal] Allergy Unknown Unverified 03/27/21 12:09 Consultations 03/27/21 13:15 ED Decision to Admit Stat 03/27/21 20:31 Consult Neurology Routine Ordered Studies 03/27/21 11:02 CT head/brain wo con Stat 03/27/21 11:13 CT angio head w con Stat CT angio neck with con Stat 03/27/21 15:23 MR brain wo con Urgent 03/29/21 08:00 MR brain wo con Routine Hospital Course (1) Stroke-like symptoms: (2) History of CVA (cerebrovascular accident): (3) MTHFR mutation: -Patient presenting by referral of neurology office for evaluation of strokelike symptoms (left facial numbness, left fingertip numbness, ataxia/left leg weakness) -MRI 07/2020 showed chronic right basal ganglia ischemic stroke and chronic microvascular ischemic changes. Was started on aspirin at that time. -In the ED, stroke alert was called however patient was felt to be not a candidate for TPA given that she was outside of the time window -CTA head neck shows focal occlusion of the P1 segment on the right, otherwise unremarkable -Noted history of MTHFR mutation diagnosed in 2008, patient was referred to hematology however was never formally evaluated -LDL 103, goal <70 -Brain MRI - 1. No acute or subacute infarct. 2. Low-lying cerebellar tonsils. 3. Subcentimeter foci of increased T2 signal within the cerebellar hemispheres redemonstrated suggestive of chronic lacunar infarcts versus perivascular spaces. 4. Subcentimeter focus of increased T2/FLAIR signal within the right cerebral peduncle is indeterminate and appears new from the 2017 comparison. Correlate with clinical presentation to exclude an acute seizure focus. - Repeat MRI Brain 03/29 AM- 1. There is an approximately 2 cm focus of restricted diffusion within the right aspect of the midbrain consistent with an acute to subacute infarct. The restricted diffusion is new as compared to yesterday's examination. 2. No additional foci of acute ischemia are identified. There is no hemorrhage or mass effect. 3. Chronic lacunar infarcts in the cerebellar hemispheres are unchanged. - Echo - LV is normal in size. There is normal LV wall thickness. LV wall motion is normal. EF 55 to 60%. Left atrium is severely dilated. Bicuspid aortic valve cannot be excluded. No hemodynamically significant valvular aortic stenosis. Mitral valve leaflets are moderately thickened and mildly restricted in leaflet mobility. There is only minimal calcification. 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 There is moderate thickening of the mitral valve chordal apparatus. There is no mitral valve stenosis. There is trace mitral regurg. The interatrial septum is intact with no evidence for an ASD. Injection of contrast documented no inter atrial shunt. Telemetry checked -patient in sinus rhythm, with occasional PVCs -Continue aspirin, ,added Plavix , also started atorvastatin 80 mg -Neurochecks -Neurology consulted, case discussed with Dr. Lara Pt will need routine post stroke neuro outpt follow up in 1 month and also recommend Zio patch Otherwise -follow-up with [facility] neurology for her seizure disorder, and [facility] for cardiology Dispo: Worked with PT - recommend rehab as patient has difficulty ambulating Patient does not want to go to inpatient rehab at this time. Discussed with patient's , upon patient's request. Her family, her mother and will provide help at home, as patient much prefers to go to outpatient rehab facility then inpt rehab. (4) Epilepsy: -Continue Topamax and clonazepam (5) S/P balloon mitral valvuloplasty: -In 1999 and 2016, no acute issues (6) DVT prophylaxis: -SQ Lovenox Total Time Total Time Spent Total Time Spent (In Minutes): 40 Discharge Plan Discharge Items Patient Disposition: Home - Self-Care Reason For Visit: POSSIBLE STROKE Discharge Diagnosis: Acute CVA Activity: Per Instructions section Non-emergency contact: Primary Care Provider Call non-emergency contact if: you have any medication questions and your symptoms worsen Follow-up/Referrals: Sandor Reyna MD [Primary Care Provider] - (Date & Time 04/05/2021 11:20 AM Provider Sandor Reyna MD Department Family Medicine [facility] ) Diet: Regular Addtl Attending Provider Instructions: Follow-up with your primary care doctor, the appointment was scheduled for you for April 05. It was recommended that you continue with inpatient rehabilitation, however prescription for outpatient rehabilitation was provided for you, per your wishes. Make sure to take Plavix in addition to aspirin. You will need to follow-up with neurology after your episode of stroke. You will also need Zio patch, to monitor your heart rate for possible abnormal heart rhythm. Pending Studies at Discharge: No Stand-Alone Forms: My [facility], Smoking Cessation Medications and DC Order Prescriptions: New clopidogrel 75 mg Tablet 75 mg PO QAM Qty: 30 RF: 0 atorvastatin 80 mg tablet 80 mg PO DAILY Qty: 30 RF: 0 Continued topiramate 50 mg tablet 50 mg PO DAILY RF: 0 topiramate 50 mg tablet 100 mg PO HS RF: 0 clonazepam 0.5 mg tablet 0.5 mg PO TID RF: 0 aspirin 81 mg Tablet 81 mg PO DAILY RF: 0 topiramate 200 mg tablet 200 mg PO BID RF: 0 Discharge Orders: Discharge Order (Routine); Ordered 03/30/21 Ordered By: Everett Andrews Admission Data Admit Date/Time: 03/27/21 13:29 Attending Provider: Everett Andrews Admit Provider: Jackeline Pacheco Primary Care Provider: Sandor Reyna Other Providers: Jackeline Pacheco ; Brendan Lara
--- NOTE | 2021-03-30 15:15 | Pharmacy Report ---
Pharmacist Stroke Counseling - Date of Service March 30, 2021 - Scope: Pharmacy has been consulted to provide medication discharge counseling for this patient admitted with ischemic stroke as per the Pharmacist Discharge Counseling for Stroke Patients Protocol. - Medications on Discharge: Home Medications Medication Instructions Recorded Confirmed topiramate 50 mg tablet 50 mg PO DAILY 08/26/19 03/27/21 topiramate 50 mg tablet 100 mg PO HS 08/26/19 03/27/21 aspirin 81 mg tablet 81 mg PO DAILY 03/27/21 03/27/21 clonazepam 0.5 mg tablet 0.5 mg PO TID 03/27/21 03/27/21 topiramate 200 mg tablet 200 mg PO BID 03/27/21 03/27/21 New Rx's Medication Instructions Recorded atorvastatin 80 mg tablet 80 mg PO DAILY #30 tab 03/30/21 clopidogrel 75 mg tablet 75 mg PO QAM #30 tab 03/30/21 - Action: The above medications, specifically ones for stroke treatment/prophylaxis, have been reviewed in detail with the patient prior to discharge. This includes indication, common adverse reactions, drug interactions, and medication administration. Medication counseling has been employed using the teach-back method to ensure understanding. - Outcome: The patient demonstrated understanding of the medications. Saw patient in her room today. She was very pleasant and receptive to counseling. Reviewed new medications to prevent stroke including Clopidogrel and Atorvastatin. She was already on a daily Aspirin 81mg prior to admission. She understands that she is to continue the Aspirin as before. Discussed why they are being used and common side effects in great detail. Reviewed how to use the medications, what to do if doses are missed, common drug interactions, common side effects, what to watch out for while using the medications. Pt verbalized understanding and restated the spears points of each medication. Thank you for allowing pharmacy to be involved in the care of this patient. Please call [phone] with any additional questions
== END 2021-03-30 15:17 | disposition home or self-care (01) | DRG 65 ==
LOC: ED 10:50 → EDINP 13:29 → SUATTDRO 13:29 → 2S 20:19

== ENCOUNTER 2021-10-19 08:12 | Inpatient (IN) ==
[2021-10-19] MEDS ORDERED: SODIUM CHLORIDE 0.9% 1000ML 1,000 ML IV SCH (08:30)
--- NOTE | 2021-10-19 08:38 | Emergency Department Note ---
Impression & Plan Abnormal vaginal bleeding, Acute hypotension, Anemia ED Provider Note NAME: JIGNESH PRITCHETT AGE: 46 SEX: F : 1975 ARRIVES VIA: Walk-In INFORMANT: Patient, ED PROVIDER(S): Nathan Francis DO CHIEF COMPLAINT: Vaginal bleeding HPI: The patient is a 46-year-old female who presented to the emergency department for evaluation of vaginal bleeding. The patient states she has a history of clotting disorder and does take aspirin and Plavix. She started having vaginal bleeding almost a month ago. The symptoms have slowly been worsening. She came to our emergency department yesterday because of the symptoms. At that time she was diagnosed with severe anemia and vaginal bleeding. She received progesterone as well as a blood transfusion. She was evaluated by PRE OWNED SALES MANAGER. The patient was feeling better and symptoms did not improve so she requested to be discharged home however symptoms recurred this morning and became much more severe. The patient states she is becoming dizzy upon standing. She is noticing weakness. She denies having any chest pain. She is had no recent trauma. She did consent for blood last evening. The patient did not get to her pharmacy to vegetable picker the next dose of the progesterone. ROS: See above HPI for pertinent positives & negatives. A total of 10 systems reviewed and were otherwise negative. PAST MEDICAL HISTORY: See Below PAST SURGICAL HISTORY: See Below FAMILY HISTORY: See Below SOCIAL HISTORY: See Below HOME MEDICATIONS: See Below ALLERGIES: See Below VITALS: See Below PHYSICAL EXAMINATION: GENERAL: The patient is awake and alert. She is very pale and anxious appearing. EYES: The conjunctivae are clear. The pupils are round and reactive. EARS, NOSE, MOUTH AND THROAT: The nose is without any evidence of any deformity. NECK: The neck is nontender and supple. RESPIRATORY: Normal respiratory effort is noted there is no evidence of wheezing rhonchi or rales CARDIOVASCULAR: Tachycardic rate with regular rhythm was noted. There is no definite murmur. GASTROINTESTINAL: Abdomen is soft and mildly distended. There is suprapubic tenderness to palpation. There is no guarding rigidity MUSCULOSKELETAL/EXTREMITIES: There is no evidence of gross deformity full range of motion is noted in the hips and shoulders. SKIN: There is no obvious evidence of any rash. There are no petechiae, pallor or cyanosis noted. NEUROLOGIC: Patient is awake alert and oriented x3 MEDICAL DECISION MAKING: The patient is a 46-year-old female who is a history of clotting disorder. She presented to the emergency department for an evaluation of ongoing vaginal bleeding. She was seen in our facility last evening. She was treated with Aygestin. She did receive a blood transfusion last evening. Admission was advised but the patient could not stay in the hospital at that time. She returned today because of worsening symptoms. She was treated with IV fluids in the emergency department. I discussed patient's laboratory studies with her. I also discussed her case with the on-call [facility] PRE OWNED SALES MANAGER physician. The patient was evaluated in the emergency department by the PRE OWNED SALES MANAGER physician. The patient received blood transfusion in the emergency department. I did sign the patient's blood consent and consented her for blood transfusion. Triage Nursing notes reviewed. Prior medical records reviewed Vital Signs: reviewed and remarkable for hypotension. Differential diagnosis: Etiologies such as threatened AB, miscarriage, ectopic , dysfunction uterine bleeding, bleeding dyscrasia, trauma, infection, as well as others were entertained. ER treatment provided: See below Diagnostics interpreted by me: ECG: none Cardiac Monitoring: An order was placed for continuous cardiac monitoring. The monitor shows a rate of 89 bpm with sinus rhythm. Laboratory studies: As stated above and show below. Imaging studies: See below Consultation(s): I discussed this case with Dr. Pelletier who is on for the [facility] PRE OWNED SALES MANAGER group. I discussed this case with Dr. Witt who presented to the emergency department to evaluate the patient. I have personally spent greater than 45 minutes of critical care time in the direct management of this patient. This includes bedside care, interpretation of diagnostic studies, and testing, discussion with consultants, patient, and family members, and other required patient management activities. This 45 minutes is in excess of all separately billable procedures. Past Med/Surg History Medical History CHF (congestive heart failure) 1 episode Epilepsy History of CVA (cerebrovascular accident) Mitral valve stenosis MTHFR mutation Surgical History History of tubal ligation S/P balloon mitral valvuloplasty in 1999 and 2017 [facility] Social History Smoking Status: Never smoker Tobacco Type: Cigarettes Second Hand Exposure: No; Hx Alcohol Use: No Hx Substance Use: No Preferred Language: Finnish Communication Ability: Effective Clinical Geneticist Required: No Beliefs That Will Affect Care: None Current Living Situation: Spouse Feels Safe at Home: Yes Assistive Devices: Walker Allergies Allergies Allergy/AdvReac Type Severity Reaction Status Date / Time lamotrigine [From Lamictal] Allergy Intermediate Rash Verified 10/19/21 11:35 Penicillins Allergy Intermediate Rash Verified 10/19/21 11:35 Home Meds Home Medications Medication Instructions Recorded Confirmed topiramate 50 mg tablet See Rx Instructions .ROUTE .COMPLEX 08/26/19 10/19/21 Lactobacillus acidophilus 10 10,000 mmu cells PO DAILY 10/19/21 10/19/21 billion cell capsule (Probiotic) aspirin 81 mg tablet,delayed 81 mg PO DAILY 10/19/21 10/19/21 release ferrous sulfate 325 mg (65 mg 325 mg PO DAILY 10/19/21 10/19/21 iron) tablet (iron) multivitamin 1 tab PO DAILY 10/19/21 10/19/21 Previous Rx's Medication Instructions Recorded atorvastatin 80 mg tablet 80 mg PO DAILY #30 tab 03/30/21 clopidogrel 75 mg tablet 75 mg PO QAM #30 tab 03/30/21 norethindrone acetate 5 mg tablet See Rx Instructions .ROUTE 10/18/21 (Aygestin) .COMPLEX #28 tab Results & Data (ED) Vital Signs Vital Signs - 24 hr 10/19/21 08:20 10/19/21 08:36 10/19/21 08:44 Temperature 36.8 C Temperature Source Temporal Artery Scan Pulse Rate - Lying Pulse Rate - Sitting Pulse Rate - Standing Pulse Rate 95 H 88 Pulse Rate from SpO2 Sensor Pulse Rhythm Pulse Strength Respiratory Rate 20 20 Respiratory Effort / Characteristics Non-Labored Respiratory Depth Normal Blood Pressure - Lying Blood Pressure - Sitting Blood Pressure- Standing Blood Pressure 88/58 L 105/67 Blood Pressure [Right Arm] Blood Pressure Mean 68 79 Blood Pressure Mean [Right Arm] Blood Pressure Position Pulse Oximetry 100 100 98 Oxygen Delivery Method Room Air Room Air Sepsis Recent Fever Within 48 Hours No Sepsis New/Unexplained Change in Mental Status N/A Sepsis Action Taken by Nursing No Action Required 10/19/21 09:02 10/19/21 10:00 10/19/21 10:19 Temperature Temperature Source Pulse Rate - Lying 97 H Pulse Rate - Sitting 106 H Pulse Rate - Standing 109 H Pulse Rate 84 89 97 H Pulse Rate from SpO2 Sensor 96 H Pulse Rhythm Pulse Strength Respiratory Rate 21 19 22 Respiratory Effort / Characteristics Respiratory Depth Blood Pressure - Lying 91/52 L Blood Pressure - Sitting 89/60 L Blood Pressure- Standing 91/63 L Blood Pressure 88/54 L 91/52 L Blood Pressure [Right Arm] 95/60 L Blood Pressure Mean 65 65 Blood Pressure Mean [Right Arm] 71 Blood Pressure Position Pulse Oximetry 100 100 100 Oxygen Delivery Method Sepsis Recent Fever Within 48 Hours Sepsis New/Unexplained Change in Mental Status Sepsis Action Taken by Nursing 10/19/21 10:21 10/19/21 10:30 10/19/21 11:00 Temperature Temperature Source Pulse Rate - Lying Pulse Rate - Sitting Pulse Rate - Standing Pulse Rate 107 H 80 85 Pulse Rate from SpO2 Sensor Pulse Rhythm Pulse Strength Respiratory Rate 17 20 21 Respiratory Effort / Characteristics Respiratory Depth Blood Pressure - Lying Blood Pressure - Sitting Blood Pressure- Standing Blood Pressure 91/63 L 90/60 L Blood Pressure [Right Arm] Blood Pressure Mean 72 70 Blood Pressure Mean [Right Arm] Blood Pressure Position Pulse Oximetry 100 Oxygen Delivery Method Sepsis Recent Fever Within 48 Hours Sepsis New/Unexplained Change in Mental Status Sepsis Action Taken by Nursing 10/19/21 11:26 10/19/21 11:45 10/19/21 12:00 Temperature 36.7 C 37.3 C 37 C Temperature Source Oral Oral Oral Pulse Rate - Lying Pulse Rate - Sitting Pulse Rate - Standing Pulse Rate 113 H 90 92 H Pulse Rate from SpO2 Sensor Pulse Rhythm Regular Pulse Strength Normal Respiratory Rate 18 20 18 Respiratory Effort / Characteristics Respiratory Depth Blood Pressure - Lying Blood Pressure - Sitting Blood Pressure- Standing Blood Pressure 93/64 L 97/63 L 98/65 L Blood Pressure [Right Arm] Blood Pressure Mean 73 74 76 Blood Pressure Mean [Right Arm] Blood Pressure Position Sitting Pulse Oximetry 100 100 100 Oxygen Delivery Method Sepsis Recent Fever Within 48 Hours Sepsis New/Unexplained Change in Mental Status Sepsis Action Taken by Nursing 10/19/21 12:30 Temperature 37.0 C Temperature Source Oral Pulse Rate - Lying Pulse Rate - Sitting Pulse Rate - Standing Pulse Rate 88 Pulse Rate from SpO2 Sensor Pulse Rhythm Pulse Strength Respiratory Rate 18 Respiratory Effort / Characteristics Respiratory Depth Blood Pressure - Lying Blood Pressure - Sitting Blood Pressure- Standing Blood Pressure 102/63 Blood Pressure [Right Arm] Blood Pressure Mean 76 Blood Pressure Mean [Right Arm] Blood Pressure Position Pulse Oximetry 100 Oxygen Delivery Method Sepsis Recent Fever Within 48 Hours Sepsis New/Unexplained Change in Mental Status Sepsis Action Taken by Detention Medications Current Medication List: was personally reviewed by me Laboratory Data Attestation: I reviewed the patient's lab results. Result diagrams: 10/19/21 08:40 10/19/21 08:40 Lab Results 10/19/21 10/19/21 10/19/21 Range/Units 08:30 08:40 08:40 WBC 9.53 (4.8-10.8) K/uL RBC 3.57 L (4.2-5.4) M/uL Hgb 8.2 L (12.0-16.0) g/dL Hct 26.5 L (37-47) % MCV 74.2 L (80-100) fL MCH 23.0 L (25-34) pg MCHC 30.9 L (32-36) g/dL RDW Std Deviation 57.5 H (36.4-46.3) fL RDW Coeff of Yung 20.9 H (11.5-14.5) % Plt Count 233 (130-400) K/uL MPV 10.7 H (7.4-10.4) fL Immature Gran % (Auto) 0.3 % Neut % (Auto) 73.8 % Lymph % (Auto) 16.5 % [place] % (Auto) 5.6 % Eos % (Auto) 3.4 % Baso % (Auto) 0.4 % Neut # (Auto) 7.04 H (1.4-6.5) K/uL Lymph # (Auto) 1.57 (1.2-3.4) K/uL [place] # (Auto) 0.53 (0.11-0.59) K/uL Eos # (Auto) 0.32 (0-0.5) K/uL Baso # (Auto) 0.04 (0-0.2) K/uL Immature Gran # (Auto) 0.03 H (0.00-0.02) K/uL Absolute Nucleated RBC 0.06 H (0-0) K/uL Nucleated RBC % (auto) 0.6 % Polychromasia 1+ Hypochromasia Present Anisocytosis Present Ovalocytes 1+ Schistocytes 1+ PT 10.2 (9.0-12.0) Seconds INR 1.0 (0.9-1.1) APTT 24.0 (21.0-31.0) Seconds PTT Ratio 0.9 Sodium (136-145) mmol/L Potassium (3.5-5.1) mmol/L Chloride (98-107) mmol/L Carbon Dioxide (21-32) mmol/L Anion Gap (3-11) BUN (6-23) mg/dl Creatinine (0.6-1.2) mg/dl Est Cr Clr Drug Dosing ml/min Est GFR ( Amer) ml/min Est GFR (Non-Af Amer) ml/min BUN/Creatinine Ratio (10-20) Glucose (70-99(Fasting)) mg/dl Calcium (8.5-10.1) mg/dl Total Bilirubin (0.2-1.0) mg/dl AST (13-39) U/L ALT (7-52) U/L Alkaline Phosphatase (34-104) U/L Total Protein (6.0-8.3) gm/dl Albumin (3.4-5.0) gm/dl Globulin (2.5-4.0) gm/dl Albumin/Globulin Ratio (0.9-2) HCG, Qual (Negative) Urine Color Red Urine Appearance Turbid A (Clear) Urine pH 8.5 H (4.5-7.5) Ur Specific [place] 1.020 (1.000-1.030) Urine Protein 3+ H (Negative) Urine Glucose (UA) Negative (Negative) Urine Ketones Negative (Negative) Urine Blood 3+ H (Negative) Urine Nitrite Negative (Negative) Urine Bilirubin Negative (Negative) Urine Urobilinogen Negative (Negative) Ur Leukocyte Esterase Negative (Negative) Urine RBC >30 H (0-4) /hpf Urine WBC 10-30 H (0-5) /hpf Ur Epithelial Cells 0-5 (0-5) /lpf Urine Bacteria Negative (Negative) Blood Type Antibody Screen Crossmatch 10/19/21 10/19/21 10/19/21 Range/Units 08:40 08:40 08:42 WBC (4.8-10.8) K/uL RBC (4.2-5.4) M/uL Hgb (12.0-16.0) g/dL Hct (37-47) % MCV (80-100) fL MCH (25-34) pg MCHC (32-36) g/dL RDW Std Deviation (36.4-46.3) fL RDW Coeff of [place]ung (11.5-14.5) % Plt Count (130-400) K/uL MPV (7.4-10.4) fL Immature Gran % (Auto) % Neut % (Auto) % Lymph % (Auto) % [place] % (Auto) % Eos % (Auto) % Baso % (Auto) % Neut # (Auto) (1.4-6.5) K/uL Lymph # (Auto) (1.2-3.4) K/uL [place] # (Auto) (0.11-0.59) K/uL Eos # (Auto) (0-0.5) K/uL Baso # (Auto) (0-0.2) K/uL Immature Gran # (Auto) (0.00-0.02) K/uL Absolute Nucleated RBC (0-0) K/uL Nucleated RBC % (auto) % Polychromasia Hypochromasia Anisocytosis Ovalocytes Schistocytes PT (9.0-12.0) Seconds INR (0.9-1.1) APTT (21.0-31.0) Seconds PTT Ratio Sodium 139 (136-145) mmol/L Potassium 3.6 (3.5-5.1) mmol/L Chloride 112 H (98-107) mmol/L Carbon Dioxide 22 (21-32) mmol/L Anion Gap 5 (3-11) BUN 10 (6-23) mg/dl Creatinine 0.84 (0.6-1.2) mg/dl Est Cr Clr Drug Dosing 87.5 ml/min Est GFR ( Amer) 98.0 ml/min Est GFR (Non-Af Amer) 84.5 ml/min BUN/Creatinine Ratio 11.9 (10-20) Glucose 87 (70-99(Fasting)) mg/dl Calcium 8.3 L (8.5-10.1) mg/dl Total Bilirubin 0.8 D (0.2-1.0) mg/dl AST 17 (13-39) U/L ALT 16 (7-52) U/L Alkaline Phosphatase 101 (34-104) U/L Total Protein 6.3 (6.0-8.3) gm/dl Albumin 3.7 (3.4-5.0) gm/dl Globulin 2.6 (2.5-4.0) gm/dl Albumin/Globulin Ratio 1.4 (0.9-2) HCG, Qual Negative (Negative) Urine Color Urine Appearance (Clear) Urine pH (4.5-7.5) Ur Specific [place] (1.000-1.030) Urine Protein (Negative) Urine Glucose (UA) (Negative) Urine Ketones (Negative) Urine Blood (Negative) Urine Nitrite (Negative) Urine Bilirubin (Negative) Urine Urobilinogen (Negative) Ur Leukocyte Esterase (Negative) Urine RBC (0-4) /hpf Urine WBC (0-5) /hpf Ur Epithelial Cells (0-5) /lpf Urine Bacteria (Negative) Blood Type O Positive Antibody Screen NEGATIVE Crossmatch See Detail Administered Medications Discontinued Medications Sodium Chloride (Nss 1000ml) 1,000 mls @ 999 mls/hr IV .[id number] KIA Stop: 10/19/21 09:30 Last Infusion: 10/19/21 10:01 Dose: 0 mls/hr Documented by: [id number] Admin: 10/19/21 08:53 Dose: 999 mls/hr Documented by: [id number] Norethindrone (Norethindrone 5 Mg Tab) 10 mg PO ONE STA Stop: 10/19/21 09:53 Last Admin: 10/19/21 10:48 Dose: 10 mg Documented by: [id number] Discharge Plan Visit Data Chief Complaint: Vaginal Bleeding Stated Complaint: VAGINAL BLEEDING ED Provider: Nathan Francis Discharge Problem: Abnormal vaginal bleeding, Acute hypotension, Anemia Patient Disposition: Being Evaluated by Surgeon Forms Stand Alone Forms: [facility] [place] Prescriptions Prescriptions: No Action topiramate 50 mg tablet See Rx Instructions .ROUTE .COMPLEX RF: 0 clopidogrel 75 mg Tablet 75 mg PO QAM Qty: 30 RF: 0 atorvastatin 80 mg tablet 80 mg PO DAILY Qty: 30 RF: 0 norethindrone acetate [Aygestin] 5 mg tablet See Rx Instructions .ROUTE .COMPLEX Qty: 28 RF: 0 multivitamin Tablet 1 tab PO DAILY RF: 0 aspirin 81 mg Tablet,Delayed Release (Dr/Ec) 81 mg PO DAILY RF: 0 ferrous sulfate [iron] 325 mg (65 mg iron) Tablet 325 mg PO DAILY RF: 0 Probiotic 10 billion cell Capsule 10,000 mmu cells PO DAILY RF: 0 Referrals Referrals: Sandor Reyna MD [Primary Care Provider] - Discharge Problem: Anemia Qualifiers: Anemia type: unspecified type Qualified Code(s): D64.9 - Anemia, unspecified
[2021-10-19 08:56] LABS: Basophils # (auto) 0.04 K/uL (0-0.2); Basophils % (auto) 0.4 %; Eosinophils # (auto) 0.32 K/uL (0-0.5); Eosinophils % (auto) 3.4 %; Hematocrit (blood only) 26.5 % (37-47); Hemoglobin 8.2 g/dL (12.0-16.0); Immature Granulocytes # (auto) 0.03 K/uL (0.00-0.02); Immature Granulocytes % (auto) 0.3 %; Lymphocytes # (auto) 1.57 K/uL (1.2-3.4); Lymphocytes % (auto) 16.5 %; Mean Corpuscular Hgb Conc 30.9 g/dL (32-36); Mean Corpuscular Volume 74.2 fL (80-100); Mean Platelet Volume 10.7 fL (7.4-10.4); Monocytes # (auto) 0.53 K/uL (0.11-0.59); Monocytes % (auto) 5.6 %; Neutrophils # (auto) 7.04 K/uL (1.4-6.5); Neutrophils % (auto) 73.8 %; Nucleated RBC # (auto) 0.06 K/uL (0-0); Nucleated RBC % (auto) 0.6 %; Platelet Count 233 K/uL (130-400); RDW Coefficient of Variation 20.9 % (11.5-14.5); RDW Standard Deviation 57.5 fL (36.4-46.3); Red Blood Count 3.57 M/uL (4.2-5.4); White Blood Count 9.53 K/uL (4.8-10.8)
[2021-10-19 09:16] LABS: Albumin Globulin Ratio 1.4 (0.9-2); Albumin Level 3.7 gm/dl (3.4-5.0); BUN Creatinine Ratio 11.9 (10-20); Bilirubin,Total 0.8 mg/dl (0.2-1.0); Calcium 8.3 mg/dl (8.5-10.1); Creatinine Clr Calc Pharmacy 87.5 ml/min; Est GFR (Non-African American) 84.5 ml/min; Globulin 2.6 gm/dl (2.5-4.0); Potassium 3.6 mmol/L (3.5-5.1); Total Protein 6.3 gm/dl (6.0-8.3)
[2021-10-19 09:29] LABS: Anisocytosis Present; Hypochromasia Present; Ovalocytes 1+; Polychromasia 1+; Schistocytes 1+
[2021-10-19 09:31] LABS: Partial Thromboplastin Ratio 0.9; Prothrombin Time 10.2 Seconds (9.0-12.0)
[2021-10-19] MEDS ORDERED: NORETHINDRONE 5 MG TAB PO STA (09:52)
[2021-10-19 10:06] LABS: Appearance Urine Turbid (Clear); Bilirubin Urine Negative (Negative); Blood Urine 3+ (Negative); Color Urine Red; Glucose Urine UA Negative (Negative); Ketones Urine Negative (Negative); Leukocyte Esterase Urine Negative (Negative); Nitrite Urine Negative (Negative); Protein Urine 3+ (Negative); Urobilinogen Urine Negative (Negative); pH Urine 8.5 (4.5-7.5)
--- NOTE | 2021-10-19 10:09 | OB/GYN Consultation ---
Date of Consultation October 19, 2021 Assessment & Plan (1) Abnormal vaginal bleeding: Recent course of events reviewed in addition to current patient presentation. Menorrhagia with acute blood loss anemia, partially corrected last night, but with ongoing losses this morning that have likely cost her much if not all of her prior transfusion volume (Hgb likely not equilibrated at time of draw this morning). Hypotension, symptoms, and positional tachycardia all noted. Patient is agreeable to another 2u pRBC transfusion which I feel is warranted. In order to stem her losses, many options are considered. To keep her risks minimal, I am hoping to avoid estrogens, lysteda, and D&C with anesthesia. She has not yet had an adequate trial of aygestin, and actually did seem to respond to the one dose she got last night; she just didn't get enough as she "missed" what would have been two overnight doses of a typical taper. Will start with aygestin taper now, 10mg PO to be given karthik (not yet arrived from pharmacy to ER), and admit for 24 hours inpatient monitoring to ensure adequate effect. Patient's mom will go machine operator picker the outpatient Rx so that next time she is able to go home, she has meds ready to use on schedule. If this is unable to stem her bleeding sufficiently for outpatient care, the risks of surgical tx or the more pro-coagulant medications may be merited. Also discussed the availability of various methods of planning for director long term care prevention going forward. She can use progestins, both systemic and local, and might be very well served by a progestin IUD. She may also be a candidate for ablation, which could be done with a D&C to also provide surgical diagnosis of her thickened endometrium. Finally, definitive tx is an option, as she is done with childbearing as evidenced by her tubal ligation. Whether she elects a director long term care management option or just acute stabilization, the importance of completing an outpatient workup for this issue was stressed. An office-based pipelle sample of the endometrium would be recommended, at minimum. Repeat scan to show resolution of her ovarian cyst is also recommended. (2) Epilepsy: Will continue her home meds during admission. (3) MTHFR mutation: On plavix and ASA, which will continue as an inpatient. May be contributing to menorrhagia but the benefits of these outweigh the risks. (4) History of CVA (cerebrovascular accident): Antiplatelet agents as above. History of Present Illness Reason for Consultation: Vaginal bleeding Requesting Physician: Tito Attending Physician: Eduar History of Present Illness 46yo (30wk twin for [id number] transfusion - 27 years ago now, martin CS at term, SAB x1) presents to the ER for the second time in 24 hours for heavy vaginal bleeding. She is usually seen by her [facility]ING [facility]AGE CASHIER in [place], who is unavailable at the current time, so she presented to [facility]. The patient has also had prior heavy vaginal bleeding, resulting in an urgent D&C approximately two years ago in [place]. She states she was not offered any treatment after that to prevent recurrent bleeding episodes, and was in fact under the impression that it may not be safe to use any hormonal treatment at all due to her history of coagulopathy and CVA. Therefore she has been having unmedicated menstrual cycles since then. They are typically Q30d and last 7-10 days, requiring super-plus tampons. She skipped one cycle in the Jul-Aug timeframe this year but that was unusual for her, and she is unsure why it happened. A tubal ligation provides contraception. She decided to present to the ER last night after a particularly heavy bleeding episode that left her feeling faint, dizzy with standing, and weak, with shortness of breath. She also describes a "whooshing" in her ears that was occurring last night when she was at the ER. Her Hgb at that time was found to be 6.3, and she was recommended to be admitted for blood transfusion and Aygestin therapy. The patient, however, has a daughter graduating from [employer] today and declined admission, hoping to be able to attend the graduation ceremony. She received only 1 dose of aygestin here prior to leaving the hospital. She was unable to obtain the outpatient Rx for additional Aygestin doses as the pharmacies in the area are not open at those hours. (In fact, she received a text from her pharmacy just now while speaking with me, saying that the Rx sent last night for an Aygestin taper was ready for pickup.) Overnight her bleeding increased again, and this morning she passed what she estimates to be "8oz glass full" of "thin liquid blood" plus a "baseball" sized clot onto the floor of the bathroom. This frightened her and she decided to return to the ER. Although she is able to stand without dizziness currently, she notes that the whooshing in her ears has returned and she feels weak again. She has accepted that she cannot safely attend graduation and is prepared to be admitted if we feel that it is necessary. She is also accompanied by her own mother here in the ER, who is supportive of that plan. Allergies Allergy/AdvReac Type Severity Reaction Status Date / Time Penicillins Allergy Unknown Unknown Verified 03/27/21 12:09 lamotrigine [From Lamictal] Allergy Unknown Unverified 03/27/21 12:09 Home Medications Medication Instructions Recorded Confirmed Type topiramate 50 mg tablet 50 mg PO DAILY 08/26/19 03/27/21 History topiramate 50 mg tablet 100 mg PO HS 08/26/19 03/27/21 History aspirin 81 mg tablet 81 mg PO DAILY 03/27/21 03/27/21 History clonazepam 0.5 mg tablet 0.5 mg PO TID 03/27/21 03/27/21 History topiramate 200 mg tablet 200 mg PO BID 03/27/21 03/27/21 History atorvastatin 80 mg tablet 80 mg PO DAILY #30 tab 03/30/21 Rx clopidogrel 75 mg tablet 75 mg PO QAM #30 tab 03/30/21 Rx norethindrone acetate 5 mg tablet See Rx Instructions .ROUTE 10/18/21 Rx (Aygestin) .COMPLEX #28 tab Patient History Medical History CHF (congestive heart failure) 1 episode Epilepsy History of CVA (cerebrovascular accident) Mitral valve stenosis MTHFR mutation Surgical History History of tubal ligation S/P balloon mitral valvuloplasty in 1999 and 2017 [facility] Social History Smoking Status: Never smoker Tobacco Type: Cigarettes Second Hand Exposure: No; Hx Alcohol Use: No Hx Substance Use: No Preferred Language: Indian Communication Ability: Effective Oxygen Tank Filler Required: No Beliefs That Will Affect Care: None Current Living Situation: Spouse Feels Safe at Home: Yes Assistive Devices: Walker Physical Exam Constitutional: WD/WN, vitals as above (pulse 90s sitting in bed, BP low. Orthostatics requested) Eyes: PERRL, conjunctivae normal, anicteric sclerae ENMT: Ears: no hearing impairment Neck: trachea midline, no thyromegaly normal visual inspection Respiratory: normal respiratory effort and able to speak in complete sentences; no respiratory distress and no labored breathing Cardiovascular: Rate/Rhythm: regular rate and regular rhythm Chest (Breasts): Additional Comments: gowned observation, appears normal age-appropriate breast development Musculoskeletal: Head/Neck/Chest: normocephalic and head atraumatic Skin: no rashes, warm and dry Neurologic: awake Motor/Sensory: normal movement (of upper extremities, semi-burt in bed, recent ambulation to BR noted) Psychiatric: A+Ox3, euthymic affect Genitourinary: Exam deferred in favor of review of pelvic US done and exam both within 24 hours, and bleeding volume on pads this morning here in ER. US: Uterus 8.2 x 4.8 x 5.6cm, no masses. EL 1.4cm. R ovary normal. L ovary with 3.4cm cyst containing single thin septation. Results & Data ([facility]) Vital Signs (Past 12 Hours) Vital Signs Temp Pulse Resp BP BP Pulse Ox 10/19/21 10:00 89 19 88/54 L 100 10/19/21 09:02 84 21 95/60 L 100 10/19/21 08:44 98 10/19/21 08:36 88 20 105/67 100 10/19/21 08:20 98.2 F 95 H 20 88/58 L 100 Laboratory Results Laboratory Results - last 24 hr 10/19/21 10/19/21 10/19/21 08:30 08:40 08:40 WBC 9.53 RBC 3.57 L Hgb 8.2 L Hct 26.5 L MCV 74.2 L MCH 23.0 L MCHC 30.9 L RDW Std Deviation 57.5 H RDW Coeff of Yung 20.9 H Plt Count 233 MPV 10.7 H Immature Gran % (Auto) 0.3 Neut % (Auto) 73.8 Lymph % (Auto) 16.5 Bullitt % (Auto) 5.6 Eos % (Auto) 3.4 Baso % (Auto) 0.4 Neut # (Auto) 7.04 H Lymph # (Auto) 1.57 Bullitt # (Auto) 0.53 Eos # (Auto) 0.32 Baso # (Auto) 0.04 Immature Gran # (Auto) 0.03 H Absolute Nucleated RBC 0.06 H Nucleated RBC % (auto) 0.6 Polychromasia 1+ Hypochromasia Present Anisocytosis Present Ovalocytes 1+ Schistocytes 1+ PT 10.2 INR 1.0 APTT 24.0 PTT Ratio 0.9 Sodium Potassium Chloride Carbon Dioxide Anion Gap BUN Creatinine Est Cr Clr Drug Dosing Est GFR ( Amer) Est GFR (Non-Af Amer) BUN/Creatinine Ratio Glucose Calcium Total Bilirubin AST ALT Alkaline Phosphatase Total Protein Albumin Globulin Albumin/Globulin Ratio HCG, Qual Urine Color Red Urine Appearance Turbid A Urine pH 8.5 H Ur Specific Forbes 1.020 Urine Protein 3+ H Urine Glucose (UA) Negative Urine Ketones Negative Urine Blood 3+ H Urine Nitrite Negative Urine Bilirubin Negative Urine Urobilinogen Negative Ur Leukocyte Esterase Negative Urine RBC >30 H Urine WBC 10-30 H Ur Epithelial Cells 0-5 Urine Bacteria Negative Blood Type Antibody Screen 10/19/21 10/19/21 10/19/21 08:40 08:40 08:42 WBC RBC Hgb Hct MCV MCH MCHC RDW Std Deviation RDW Coeff of Yung Plt Count MPV Immature Gran % (Auto) Neut % (Auto) Lymph % (Auto) Bullitt % (Auto) Eos % (Auto) Baso % (Auto) Neut # (Auto) Lymph # (Auto) Bullitt # (Auto) Eos # (Auto) Baso # (Auto) Immature Gran # (Auto) Absolute Nucleated RBC Nucleated RBC % (auto) Polychromasia Hypochromasia Anisocytosis Ovalocytes Schistocytes PT INR APTT PTT Ratio Sodium 139 Potassium 3.6 Chloride 112 H Carbon Dioxide 22 Anion Gap 5 BUN 10 Creatinine 0.84 Est Cr Clr Drug Dosing 87.5 Est GFR ( Amer) 98.0 Est GFR (Non-Af Amer) 84.5 BUN/Creatinine Ratio 11.9 Glucose 87 Calcium 8.3 L Total Bilirubin 0.8 D AST 17 ALT 16 Alkaline Phosphatase 101 Total Protein 6.3 Albumin 3.7 Globulin 2.6 Albumin/Globulin Ratio 1.4 HCG, Qual Pending Urine Color Urine Appearance Urine pH Ur Specific Forbes Urine Protein Urine Glucose (UA) Urine Ketones Urine Blood Urine Nitrite Urine Bilirubin Urine Urobilinogen Ur Leukocyte Esterase Urine RBC Urine WBC Ur Epithelial Cells Urine Bacteria Blood Type O Positive Antibody Screen NEGATIVE
[2021-10-19 10:10] LABS: Bacteria Urine Negative (Negative); Epithelial Cell Urine 0-5 /lpf (0-5); RBC Urine >30 /hpf (0-4)
[2021-10-19 10:31] LABS: Pregnancy Test, Serum Negative (Negative)
[2021-10-19] MEDS ORDERED: ONDANSETRON INJ 2 MG/ML 2 ML VIAL IV PRN (10:44)
[2021-10-19] MEDS ORDERED: ACETAMINOPHEN 325 MG TAB PO PRN (10:44)
[2021-10-19] MEDS ORDERED: SODIUM CHLORIDE 0.9% 250 ML IV PRN (10:44)
[2021-10-19] MEDS ORDERED: clonazePAM 0.5 MG TAB PO PRN (11:15)
[2021-10-19] MEDS: NORETHINDRONE 5 MG TAB PO SCH ×2 (17:09→23:23)
[2021-10-19 18:08] LABS: Hematocrit (blood only) 28.7 % (37-47); Hemoglobin 9.2 g/dL (12.0-16.0)
[2021-10-19] MEDS ORDERED: TOPIRAMATE 100 MG TAB PO SCH ×2 (21:00)
[2021-10-19] MEDS ORDERED: ATORVASTATIN 40 MG TAB PO SCH (21:30)
[2021-10-19] MEDS ORDERED: ASPIRIN 81 MG ECTAB PO SCH (21:30)
[2021-10-19] MEDS ORDERED: Nursing to Pharmacy Communication SCH (21:30)
[2021-10-20] MEDS: NORETHINDRONE 5 MG TAB PO SCH ×2 (04:54→10:17)
--- NOTE | 2021-10-20 07:32 | Gynecologic Progress Note ---
Date of Service October 20, 2021 Assessment & Plan (1) Abnormal vaginal bleeding: Plan: Hospital day ##1 after being observed in overnight with blood transfusion and Aygestin. The Aygestin has really helped her she has essentially stopped bleeding at this stage we reviewed the importance of taking the progesterone and the prescribed fashion. It seems when she takes that her bleeding is much reduced patient does not feel anemic her hemoglobin is pending this morning We reviewed different treatment options for the patient including medical options IUD endometrial ablation and hysterectomy she had reviewed these with Dr. Witt as well yesterday. Assuming her hemoglobin is reasonable this morning she will be discharged home she has a prescription at home of the Aygestin and will take this as prescribed and will arrange for follow-up early next week Admission and Anticipated Discharge Date Admission Date: October 19, 2021 Results & Data ([facility]) Vital Signs (Past 12 Hours) Vital Signs Temp Pulse Resp BP Pulse Ox 10/20/21 04:00 98.1 F 90 16 100/69 98 10/19/21 22:40 97.7 F 87 18 108/79 100 PG Care Time/CCT Total # of Minutes Spent Total Time Spent with Patient: Total time spent is greater than 50% in coordination of care (as documented) at patient's floor/unit and/or counseling patient: Coding Level of Care Code 34037 Subseq Hosp Care Lvl 2 Diagnoses Abnormal vaginal bleeding N93.9
[2021-10-20 08:31] LABS: Hematocrit (blood only) 29.5 % (37-47); Hemoglobin 9.5 g/dL (12.0-16.0); Mean Corpuscular Hemoglobin 24.7 pg (25-34); Mean Corpuscular Hgb Conc 32.2 g/dL (32-36); Mean Corpuscular Volume 76.8 fL (80-100); Mean Platelet Volume 11.2 fL (7.4-10.4); Platelet Count 199 K/uL (130-400); RDW Coefficient of Variation 20.9 % (11.5-14.5); RDW Standard Deviation 58.5 fL (36.4-46.3); Red Blood Count 3.84 M/uL (4.2-5.4); White Blood Count 11.84 K/uL (4.8-10.8)
[2021-10-20] MEDS ORDERED: CLOPIDOGREL BISULFATE 75 MG TAB PO SCH (09:00)
[2021-10-20] MEDS ORDERED: TOPIRAMATE 50 MG TAB PO SCH ×2 (09:00)
[2021-10-20] MEDS ORDERED: ATORVASTATIN 40 MG TAB PO SCH (09:00)
[2021-10-20] MEDS ORDERED: ASPIRIN 81 MG ECTAB PO SCH (09:00)
--- NOTE | 2021-10-22 13:21 | Discharge Summary ---
Date of Service October 22, 2021 Discharge Data Consultations 10/19/21 09:33 Consult Gynecology Stat Hospital Course (1) Abnormal vaginal bleeding: Hospital day ##1 after being observed in overnight with blood transfusion and Aygestin. The Aygestin has really helped her she has essentially stopped bleeding at this stage we reviewed the importance of taking the progesterone and the prescribed fashion. It seems when she takes that her bleeding is much reduced patient does not feel anemic her hemoglobin is pending this morning We reviewed different treatment options for the patient including medical options IUD endometrial ablation and hysterectomy she had reviewed these with Dr. Witt as well yesterday. Assuming her hemoglobin is reasonable this morning she will be discharged home she has a prescription at home of the Aygestin and will take this as prescribed and will arrange for follow-up early next week Coding Level of Care Code None Diagnoses Abnormal vaginal bleeding N93.9
== END 2021-10-20 10:29 | disposition home or self-care (01) | DRG 760 ==
LOC: ED 08:12 → 4E1 10:44